=== PATIENT | female | born 1935 | race Caucasian/White ===

== ENCOUNTER → 2016-10-01 | Outpatient (REF) | payer MEDICARE, OTHER ==
[2016-10-01 16:13] LABS: CALCIUM LEVEL 9.5 MG/DL (8.8-10.2)
== END ==
LOC: M LABDRAW1 15:40
PROVIDERS: ATTEND Internal Medicine Endocrinology, Diabetes & Metabolism
DX: M81.0 Age-related osteoporosis without current pathological fracture (principal); E55.9 Vitamin D deficiency, unspecified

== ENCOUNTER → 2016-12-18 | Outpatient (REF) | payer MEDICARE, OTHER ==
[2016-12-18 14:01] LABS: BASO % 0.6 % (0.0-1.0); EOS # 0.2 K/mm3 (0.0-0.50); EOS % 3.1 % (0.0-3.0); LARGE UNSTAINED CELL # 0.1 K/mm3 (0.0-0.4); LARGE UNSTAINED CELL % 2.6 % (0.0-4.0); LYMPH # 1.4 K/mm3 (1.5-4.5); LYMPH % 28.5 % (24.0-44.0); MEAN CORPUSCULAR HEMOGLOBIN 31.4 pg (27.0-33.0); MEAN CORPUSCULAR HGB CONC 34.6 g/dl (32.0-36.5); MEAN CORPUSCULAR VOLUME 90.8 fl (80.0-96.0); MONO # 0.3 K/mm3 (0.0-0.8); MONO % 6.7 % (0.0-5.0); NEUTROPHILS # 2.8 K/mm3 (1.8-7.7); NEUTROPHILS % 58.5 % (36.0-66.0); PLATELET COUNT, AUTOMATED 220 k/mm3 (150-450); RED CELL DISTRIBUTION WIDTH 13.1 % (11.5-14.5); WHITE BLOOD COUNT 4.9 K/mm3 (4.0-10.0)
[2016-12-18 14:05] LABS: ALBUMIN 3.9 GM/DL (3.2-5.2); ALBUMIN/GLOBULIN RATIO 1.39 (1.00-1.93); ALKALINE PHOSPHATASE 72 U/L (45-117); ALT/SGPT 18 U/L (12-78); ANION GAP 7 MEQ/L (8-16); AST/SGOT 12 U/L (15-37); BILIRUBIN,TOTAL 0.6 MG/DL (0.2-1.0); BLOOD UREA NITROGEN 17 MG/DL (7-18); CALCIUM LEVEL 10.2 MG/DL (8.8-10.2); CARBON DIOXIDE LEVEL 29 MEQ/L (21-32); CHLORIDE LEVEL 105 MEQ/L (98-107); CHOLESTEROL LEVEL 266 MG/DL (<200); CREATININE FOR GFR 0.91 MG/DL (0.55-1.02); GLOMERULAR FILTRATION RATE > 60.0 (>39); GLUCOSE, FASTING 93 MG/DL (83-110); POTASSIUM SERUM 4.1 MEQ/L (3.5-5.1); SODIUM LEVEL 141 MEQ/L (136-145); TOTAL PROTEIN 6.7 GM/DL (6.4-8.2); TRIGLYCERIDES LEVEL 107 MG/DL (<150)
== END ==
LOC: M LABDRAW1 13:39
PROVIDERS: ATTEND Family Medicine
DX: M81.0 Age-related osteoporosis without current pathological fracture (principal); I10 Essential (primary) hypertension

== ENCOUNTER → 2017-04-09 | Outpatient (REF) | payer MEDICARE, OTHER | LOC: M LABDRAW1 14:46 | PROVIDERS: ATTEND Internal Medicine Endocrinology, Diabetes & Metabolism | DX: M81.0 Age-related osteoporosis without current pathological fracture (principal); Z78.0 Asymptomatic menopausal state ==

== ENCOUNTER → 2017-04-23 | Outpatient (CLI) | payer MEDICARE, OTHER | LOC: M LABDRAW1 11:16 | PROVIDERS: ATTEND Internal Medicine Endocrinology, Diabetes & Metabolism | DX: E83.52 Hypercalcemia (principal) ==

== ENCOUNTER → 2017-04-23 | Outpatient (CLI) | payer MEDICARE, OTHER ==
[2017-04-23 16:15] LABS: ALBUMIN 4.2 GM/DL (3.2-5.2); ALBUMIN/GLOBULIN RATIO 1.62 (1.00-1.93); ALKALINE PHOSPHATASE 85 U/L (45-117); ALT/SGPT 24 U/L (12-78); ANION GAP 6 MEQ/L (8-16); AST/SGOT 15 U/L (7-37); BILIRUBIN,TOTAL 0.5 MG/DL (0.2-1.0); BLOOD UREA NITROGEN 13 MG/DL (7-18); CALCIUM LEVEL 9.3 MG/DL (8.8-10.2); CARBON DIOXIDE LEVEL 29 MEQ/L (21-32); CHLORIDE LEVEL 106 MEQ/L (98-107); CHOLESTEROL LEVEL 212 MG/DL (<200); CREATININE FOR GFR 0.77 MG/DL (0.55-1.02); GLOMERULAR FILTRATION RATE > 60.0 (>39); GLUCOSE, FASTING 92 MG/DL (83-110); POTASSIUM SERUM 3.9 MEQ/L (3.5-5.1); SODIUM LEVEL 141 MEQ/L (136-145); TOTAL PROTEIN 6.8 GM/DL (6.4-8.2); TRIGLYCERIDES LEVEL 118 MG/DL (<150)
== END ==
LOC: M LABDRAW1 11:18
PROVIDERS: ATTEND Family Medicine
DX: E78.5 Hyperlipidemia, unspecified (principal); E83.52 Hypercalcemia

== ENCOUNTER → 2017-10-06 | Outpatient (REF) | payer MEDICARE, OTHER ==
[2017-10-06 12:50] LABS: ANION GAP 6 MEQ/L (8-16); BLOOD UREA NITROGEN 16 MG/DL (7-18); CALCIUM LEVEL 9.5 MG/DL (8.8-10.2); CARBON DIOXIDE LEVEL 28 MEQ/L (21-32); CHLORIDE LEVEL 109 MEQ/L (98-107); CREATININE FOR GFR 0.96 MG/DL (0.55-1.30); GLOMERULAR FILTRATION RATE 59.7 (>39); GLUCOSE, FASTING 99 MG/DL (70-100); SODIUM LEVEL 143 MEQ/L (136-145)
== END ==
LOC: M LABDRAW1 09:29
DX: E83.52 Hypercalcemia (principal)
CPT/HCPCS: 80048

== ENCOUNTER → 2017-12-05 | Outpatient (REF) | payer MEDICARE, OTHER ==
[2017-12-05 12:40] LABS: CALCIUM LEVEL 9.4 MG/DL (8.8-10.2)
[2017-12-05 14:38] LABS: TOTAL 25(OH) VITAMIN D 80.4 NG/ML (30.0-100.0)
== END ==
LOC: M LABDRAW1 10:18
DX: M81.0 Age-related osteoporosis without current pathological fracture (principal); E55.9 Vitamin D deficiency, unspecified; E78.5 Hyperlipidemia, unspecified
CPT/HCPCS: 82310

== ENCOUNTER → 2017-12-05 | Outpatient (REF) | payer MEDICARE, OTHER ==
[2017-12-05 12:46] LABS: CHOLESTEROL LEVEL 180 MG/DL (<200); CHOLESTEROL RISK RATIO 2.465 (<5); HDL CHOLESTEROL 73 MG/DL (>40); LDL CHOLESTEROL 89.8 MG/DL (<100); NON-HDL-C 107 MG/DL; TRIGLYCERIDES LEVEL 86 MG/DL (<150)
== END ==
LOC: M LABDRAW1 10:11
DX: E78.5 Hyperlipidemia, unspecified (principal)
CPT/HCPCS: 80061

== ENCOUNTER → 2018-04-13 | Outpatient (REF) | payer MEDICARE, OTHER ==
[2018-04-13 18:56] LABS: CALCIUM LEVEL 10.1 MG/DL (8.8-10.2)
[2018-04-13 19:11] LABS: TOTAL 25(OH) VITAMIN D 78.2 NG/ML (30.0-100.0)
== END ==
LOC: M LABDRAW1 17:33
DX: M81.0 Age-related osteoporosis without current pathological fracture (principal); E55.9 Vitamin D deficiency, unspecified
CPT/HCPCS: 82310

== ENCOUNTER → 2018-10-19 | Outpatient (REF) | payer MEDICARE, OTHER ==
[~2018-10-19] MED LIST: AMLO5TAB6 PO; ASPI81TA85 PO; ATOR1TAB19 PO; CALC1TAB42 PO; COLA100C5 PO; LOPR1TAB6 PO; LUTE1CAP7 PO; MIRA3350 PO; VIT D3 PO
== END ==
LOC: M LABDRAW1 11:45
PROVIDERS: ATTEND Internal Medicine Endocrinology, Diabetes & Metabolism
DX: M81.0 Age-related osteoporosis without current pathological fracture (principal)

== ENCOUNTER → 2019-04-19 | Outpatient (REF) | payer MEDICARE, OTHER | LOC: M LABDRAW1 17:09 | PROVIDERS: ATTEND Internal Medicine Endocrinology, Diabetes & Metabolism | DX: M81.0 Age-related osteoporosis without current pathological fracture (principal); E55.9 Vitamin D deficiency, unspecified ==

== ENCOUNTER → 2019-04-27 | Outpatient (CLI) | payer MEDICARE, OTHER ==
[2019-04-27 16:20] LABS: CALCIUM LEVEL 9.7 MG/DL (8.8-10.2); PHOSPHORUS LEVEL 3.4 MG/DL (2.5-4.9); TOTAL PROTEIN 6.8 GM/DL (6.4-8.2)
[2019-04-27 16:39] LABS: PTH INTACT 71.6 PG/ML (18.5-88.0)
[2019-04-28 12:39] LABS: ALBUMIN % 64.5 % (55.8-66.1); ALPHA-2-GLOBULINS % 10.9 % (7.1-11.8); BETA-1-GLOBULINS % 5.8 % (4.7-7.2); GAMMA GLOBULIN % 9.8 % (11.1-18.8)
[2019-04-28 12:40] LABS: ALBUMIN 4.39 GM/DL (3.29-5.55); ALPHA-1-GLOBULINS 0.27 GM/DL (0.17-0.41); ALPHA-2-GLOBULINS 0.74 GM/DL (0.42-0.99); BETA-1-GLOBULINS 0.39 GM/DL (0.28-0.60); BETA-2-GLOBULINS 0.34 GM/DL (0.19-0.55); GAMMA GLOBULINS 0.67 GM/DL (0.65-1.58)
== END ==
LOC: M LAB 15:13
PROVIDERS: ATTEND Internal Medicine Endocrinology, Diabetes & Metabolism
DX: E83.52 Hypercalcemia (principal)

== ENCOUNTER → 2019-05-19 | Outpatient (REF) | payer MEDICARE, OTHER ==
[2019-05-19 11:36] LABS: HEMATOCRIT 46.6 % (36.0-47.0); HEMOGLOBIN 15.3 g/dl (12.0-15.5); MEAN CORPUSCULAR HEMOGLOBIN 30.3 pg (27.0-33.0); MEAN CORPUSCULAR HGB CONC 32.8 g/dl (32.0-36.5); MEAN CORPUSCULAR VOLUME 92.3 fl (80.0-96.0); PLATELET COUNT, AUTOMATED 216 10^3/uL (150-450); RED BLOOD COUNT 5.05 10^6/uL (4.00-5.40); WHITE BLOOD COUNT 6.4 10^3/uL (4.0-10.0)
[2019-05-19 11:41] LABS: ALBUMIN 3.9 GM/DL (3.2-5.2); BILIRUBIN,TOTAL 0.6 MG/DL (0.2-1.0); CALCIUM LEVEL 9.8 MG/DL (8.8-10.2); CHOLESTEROL RISK RATIO 2.722 (<5); CREATININE FOR GFR 0.96 MG/DL (0.55-1.30); GLOMERULAR FILTRATION RATE 59.4 (>32)
== END ==
LOC: M LABDRAW1 09:29
PROVIDERS: ATTEND Family Medicine
DX: I10 Essential (primary) hypertension (principal)

== ENCOUNTER → 2019-10-14 | Outpatient (CLI) | payer MEDICARE, OTHER ==
[2019-10-14 13:25] LABS: CALCIUM LEVEL 10.1 MG/DL (8.8-10.2)
[2019-10-14 13:33] LABS: TOTAL 25(OH) VITAMIN D 74.1 NG/ML (30.0-100.0)
== END ==
LOC: M PLALAB 11:09
PROVIDERS: ATTEND Internal Medicine Endocrinology, Diabetes & Metabolism
DX: M81.0 Age-related osteoporosis without current pathological fracture (principal)

== ENCOUNTER → 2019-11-19 | Outpatient (CLI) | payer MEDICARE, OTHER ==
[~2019-11-19] MED LIST changes: +AMLO1TAB24 PO; -AMLO5TAB6 PO; -ASPI81TA85 PO; +ASPI81TA86 PO
[2019-11-19 11:15] LABS: HEMATOCRIT 45.4 % (36.0-47.0); HEMOGLOBIN 14.9 g/dl (12.0-15.5); MEAN CORPUSCULAR HEMOGLOBIN 29.9 pg (27.0-33.0); MEAN CORPUSCULAR HGB CONC 32.8 g/dl (32.0-36.5); PLATELET COUNT, AUTOMATED 201 10^3/uL (150-450); RED BLOOD COUNT 4.99 10^6/uL (4.00-5.40); WHITE BLOOD COUNT 5.2 10^3/uL (4.0-10.0)
[2019-11-19 11:21] LABS: C REACTIVE PROTEIN QUANTITATIV < 0.30 MG/DL (0.00-0.30); RHEUMATOID FACTOR QUANT < 10.0 IU/ML (<15.0)
[2019-11-19 11:29] LABS: ALT/SGPT 25 U/L (12-78); BILIRUBIN,TOTAL 0.7 MG/DL (0.2-1.0); BLOOD UREA NITROGEN 16 MG/DL (7-18); CALCIUM LEVEL 9.8 MG/DL (8.8-10.2); CARBON DIOXIDE LEVEL 31 MEQ/L (21-32); CHLORIDE LEVEL 106 MEQ/L (98-107); CHOLESTEROL LEVEL 214 MG/DL (<200); CHOLESTEROL RISK RATIO 2.931 (<5); CREATININE FOR GFR 0.92 MG/DL (0.55-1.30); GLOMERULAR FILTRATION RATE > 60.0 (>32); GLUCOSE, FASTING 94 MG/DL (70-100); HDL CHOLESTEROL 73 MG/DL (>40); LDL CHOLESTEROL 122 MG/DL (<100); NON-HDL-C 141 MG/DL; POTASSIUM SERUM 4.5 MEQ/L (3.5-5.1); SODIUM LEVEL 140 MEQ/L (136-145); TRIGLYCERIDES LEVEL 96 MG/DL (<150)
[2019-11-19 18:00] LABS: TOTAL 25(OH) VITAMIN D 79.4 NG/ML (30.0-100.0)
[2019-11-20 14:08] LABS: ANTINUCLEAR ANTIBODIES DIRECT Negative (Negative)
== END ==
LOC: M PLALAB 09:18
PROVIDERS: ATTEND Internal Medicine Endocrinology, Diabetes & Metabolism
DX: M05.60 Rheumatoid arthritis of unspecified site with involvement of other organs and systems (principal); E78.00 Pure hypercholesterolemia, unspecified

== ENCOUNTER → 2020-05-01 | Outpatient (CLI) | payer MEDICARE, OTHER ==
[2020-05-01 14:39] LABS: CALCIUM LEVEL 10.9 MG/DL (8.8-10.2)
[2020-05-01 14:49] LABS: PTH INTACT 34.2 PG/ML (18.5-88.0); TOTAL 25(OH) VITAMIN D 64.9 NG/ML (30.0-100.0)
== END ==
LOC: M PLALAB 09:14
PROVIDERS: ATTEND Internal Medicine Endocrinology, Diabetes & Metabolism
DX: M81.0 Age-related osteoporosis without current pathological fracture (principal)

== ENCOUNTER → 2020-05-11 | Outpatient (CLI) | payer MEDICARE, OTHER ==
[2020-05-11 13:45] LABS: BASO % 0.3 % (0.0-1.0); EOS # 0.2 10^3/uL (0.0-0.5); EOS % 2.7 % (0.0-3.0); HEMATOCRIT 47.2 % (36.0-47.0); HEMOGLOBIN 15.1 g/dl (12.0-15.5); LYMPH # 1.2 10^3/uL (1.5-5.0); LYMPH % 16.4 % (24.0-44.0); MEAN CORPUSCULAR VOLUME 93.8 fl (80.0-96.0); MONO # 0.7 10^3/uL (0.0-0.8); MONO % 9.7 % (0.0-5.0); NEUTROPHILS # 5.1 10^3/uL (1.5-8.5); NEUTROPHILS % 70.2 % (36.0-66.0); PLATELET COUNT, AUTOMATED 224 10^3/uL (150-450); RED BLOOD COUNT 5.03 10^6/uL (4.00-5.40); WHITE BLOOD COUNT 7.3 10^3/uL (4.0-10.0)
[2020-05-11 14:12] LABS: ALBUMIN 3.7 GM/DL (3.2-5.2); BILIRUBIN,TOTAL 0.6 MG/DL (0.2-1.0); CALCIUM LEVEL 9.7 MG/DL (8.8-10.2); CREATININE FOR GFR 1.09 MG/DL (0.55-1.30); GLOMERULAR FILTRATION RATE 51.2 (>32); POTASSIUM SERUM 3.9 MEQ/L (3.5-5.1); TOTAL PROTEIN 6.4 GM/DL (6.4-8.2)
== END ==
LOC: M PLALAB 10:00
PROVIDERS: ATTEND Family Medicine
DX: R19.7 Diarrhea, unspecified (principal)

== ENCOUNTER → 2020-06-05 | Outpatient (CLI) | payer SELFPAY | LOC: M LABSMTC 12:27 | PROVIDERS: ATTEND Pediatrics | DX: Z20.828 Contact with and (suspected) exposure to other viral communicable diseases (principal) ==

== ENCOUNTER → 2020-09-15 | Outpatient (CLI) | payer MEDICARE, OTHER ==
[2020-09-15 13:12] LABS: HEMATOCRIT 47.4 % (36.0-47.0); HEMOGLOBIN 15.2 g/dl (12.0-15.5); MEAN CORPUSCULAR HEMOGLOBIN 29.6 pg (27.0-33.0); MEAN CORPUSCULAR HGB CONC 32.1 g/dl (32.0-36.5); MEAN CORPUSCULAR VOLUME 92.4 fl (80.0-96.0); PLATELET COUNT, AUTOMATED 229 10^3/uL (150-450); RED BLOOD COUNT 5.13 10^6/uL (4.00-5.40); WHITE BLOOD COUNT 5.7 10^3/uL (4.0-10.0)
[2020-09-15 13:59] LABS: ALBUMIN 4.2 GM/DL (3.2-5.2); ALT/SGPT 27 U/L (12-78); BILIRUBIN,TOTAL 0.4 MG/DL (0.2-1.0); BLOOD UREA NITROGEN 18 MG/DL (7-18); CALCIUM LEVEL 10.3 MG/DL (8.8-10.2); CARBON DIOXIDE LEVEL 30 MEQ/L (21-32); CHLORIDE LEVEL 104 MEQ/L (98-107); CREATININE FOR GFR 0.81 MG/DL (0.55-1.30); GLOMERULAR FILTRATION RATE > 60.0 (>32); GLUCOSE, FASTING 99 MG/DL (70-100); POTASSIUM SERUM 3.7 MEQ/L (3.5-5.1); SODIUM LEVEL 141 MEQ/L (136-145); TOTAL PROTEIN 7.1 GM/DL (6.4-8.2)
== END ==
LOC: M PLALAB 11:05
PROVIDERS: ATTEND Family Medicine
DX: R42 Dizziness and giddiness (principal)

== ENCOUNTER → 2020-11-01 | Outpatient (REF) | payer MEDICARE, OTHER ==
[2020-11-01 14:41] LABS: PTH INTACT 62.5 PG/ML (18.5-88.0)
== END ==
LOC: M PLALAB 13:11
PROVIDERS: ATTEND Internal Medicine Endocrinology, Diabetes & Metabolism
DX: E83.52 Hypercalcemia (principal); M81.0 Age-related osteoporosis without current pathological fracture

== ENCOUNTER → 2021-02-02 | Outpatient (CLI) | payer MEDICARE, OTHER ==
[~2021-02-02] MED LIST changes: +ASPI81CH33 PO
[2021-02-02 13:32] LABS: HEMATOCRIT 47.5 % (36.0-47.0); HEMOGLOBIN 15.7 g/dl (12.0-15.5); MEAN CORPUSCULAR HEMOGLOBIN 29.9 pg (27.0-33.0); MEAN CORPUSCULAR HGB CONC 33.1 g/dl (32.0-36.5); MEAN CORPUSCULAR VOLUME 90.5 fl (80.0-96.0); PLATELET COUNT, AUTOMATED 221 10^3/uL (150-450); RED BLOOD COUNT 5.25 10^6/uL (4.00-5.40); WHITE BLOOD COUNT 5.6 10^3/uL (4.0-10.0)
[2021-02-02 13:56] LABS: ALBUMIN 4.1 GM/DL (3.2-5.2); ALT/SGPT 23 U/L (12-78); BILIRUBIN,TOTAL 0.7 MG/DL (0.2-1.0); BLOOD UREA NITROGEN 14 MG/DL (7-18); CALCIUM LEVEL 10.4 MG/DL (8.8-10.2); CARBON DIOXIDE LEVEL 32 MEQ/L (21-32); CHLORIDE LEVEL 106 MEQ/L (98-107); CHOLESTEROL LEVEL 243 MG/DL (<200); CHOLESTEROL RISK RATIO 2.858 (<5); CREATININE FOR GFR 0.84 MG/DL (0.55-1.30); GLOMERULAR FILTRATION RATE > 60.0 (>32); GLUCOSE, FASTING 90 MG/DL (70-100); HDL CHOLESTEROL 85 MG/DL (>40); LDL CHOLESTEROL 139 MG/DL (<100); NON-HDL-C 158 MG/DL; POTASSIUM SERUM 4.6 MEQ/L (3.5-5.1); SODIUM LEVEL 141 MEQ/L (136-145); TOTAL PROTEIN 7.2 GM/DL (6.4-8.2); TRIGLYCERIDES LEVEL 97 MG/DL (<150)
[2021-02-02 14:47] LABS: TOTAL 25(OH) VITAMIN D 82.4 NG/ML (30.0-100.0)
== END ==
LOC: M PLALAB 09:42
PROVIDERS: ATTEND Family Medicine
DX: M81.0 Age-related osteoporosis without current pathological fracture (principal); E78.00 Pure hypercholesterolemia, unspecified

== ENCOUNTER 2021-05-03 10:14 | Emergency (ER) | payer MEDICARE, OTHER ==
[~2021-05-03] VITALS: Ht 160 cm; Wt 56.8 kg
[2021-05-03] MEDS ORDERED: MUCI1TAB18 (10:26)
[2021-05-03] MEDS ORDERED: AMOX875T (10:26)
[2021-05-03] MEDS ORDERED: IPRA6SP (10:26)
--- OUTSIDE RECORDS SUMMARY | 2021-05-03 10:27 | CCD | Continuity of Care Document ---
Author Author Lilian BUCKLEY MD Organization Unknown Address [address] [address] Phone [phone] Care Team Providers Care Health Information Systems Technician Name Role Phone Mike Vega M.D. AUTM [phone] AUTM Unavailable Problems Description No Information Available Social History Type Date Description Comments Sex Unknown ETOH Use 1 A Week Tobacco Use Start: Unknown End: Unknown Patient is a former smoker Recreational Drug Use Denies Drug Use Allergies and adverse reactions Description No Known Drug Allergies Medications Active Medications SIG Qnty Indications Ordering Provide r Date Sinus Rinse Bottle Kit Packet use once daily 3Months Usman Buckley MD 02/14/2021 Polysporin [id number] Ointme nt apply ointment to each nostril three times a day for 10 days 14.200gm Usman Buckley MD 02/14/2021 Amlodipine Besylate 5mg Tablets Unknown Atorvastatin Calcium 10mg Tablets Unknown Prolia 60mg/ml Soln Prefill Syring e [id number] Unknown Vitamin D3 25mcg (1000 Ut) Capsules Unknown Calcium 600 600mg Tablets Unknown Stool Softener 100mg Tablets Unknown Aspirin 81 Low Dose 81mg Chewtabs 1 by mouth every day Unknown Metoprolol Tartrate 50mg Tablets Unknown Gabapentin 100mg Capsules Mami Dixon, P.A. Zolpidem Tartrate 5mg Tablets Mike Vega M.D. Immunizations Description No Information Available Vital Signs Date Vital Result Comment 03/20/2021 9:51am Height 63.5 inches 5'3.50" Weight 125.00 lb BMI (Body Mass Index) 21.8 kg/m2 [place] Body Weight 115 lb Weight 56.700 kg BSA (Body Surface Area) 1.59 m2 02/14/2021 10:05am Weight 122.00 lb Weight 55.339 kg Results Description No Information Available Procedures Date Code Description Status 02/14/2021 68494 Office/Outpatient New Moderate M DM 45-59 Minutes Completed Medical Devices Description No Information Available Encounters Type Date Location Provider Dx Diagnosis Office Visit 02/14/2021 10:10a [facility] Usman Buckley MD J31.0 Chronic rhinitis Assessments Date Code Description Provider 02/14/2021 J31.0 Chronic rhinitis Usman Buckley MD Plan of Treatment No Information Available Functional Status Description No Information Available Mental Status Description No Information Available Referrals Refer to Reason for Referral Status Appt Usman Buckley M.D. [facility] Closed [address] [place] [address] [phone]
--- OUTSIDE RECORDS SUMMARY | 2021-05-03 10:27 | CCD | Continuity of Care Document ---
Author Author Lilian FRANCO [facility] Organization Unknown Address [address] [place] [address] [place] [address] Phone [phone] Care Team Providers Care Vice President Of Advertising Name Role Phone Mike Vega MD AUTM [phone] Problems Description No Information Available Social History Type Date Description Comments Sex Unknown ETOH Use Occasionally consumes wine Tobacco Use Start: Unknown End: Unknown Patient is a former smoker 1991 Allergies and adverse reactions Description No Known Drug Allergies Medications Active Medications SIG Qnty Indications Ordering Provide r Date Amoxicillin 875mg Tablets take one tablet every 12 hrs.x 10 days. 20tabs J20.9 David Chicas JR., M.D. 04/24/2021 Prednisone 10mg Tablets take one tab in the morning and at night for 5 days 10tabs J20.9 David leonard JR., M.D. 04/24/2021 Amlodipine Besylate 5mg Tablets 1 by mouth every day Unknown Prolia 60mg/ml Solution ve ry 6 months- Unknown Vitamin D3 5000Unit Tablets d aily Unknown Caltrate 600+D [id number] Tablets ad Unknown Lutein-Zeaxanthin 25-5mg Capsules daily Unknown Stool Softener 250mg Capsules bid Unknown Miralax 3350NF Packet use one packet daily as prescribed Unknown Claritin Unknown Mucinex Unknown Immunizations Description No Information Available Vital Signs Date Vital Result Comment 04/24/2021 11:48am BP Systolic 136 mmHg BP Diastolic 92 mmHg Heart Rate 98 /min Respiratory Rate 20 /min O2 % BldC Oximetry 99 % Body Temperature 99.6 F Weight 125.00 lb Height 63 inches 5'3" BMI (Body Mass Index) 22.1 kg/m2 Pain Level 8 09/01/2016 2:45pm BP Systolic 119 mmHg BP Diastolic 71 mmHg Heart Rate 81 /min Respiratory Rate 18 /min O2 % BldC Oximetry 92 % Body Temperature 99.2 F Weight 130.00 lb Height 63 inches 5'3" BMI (Body Mass Index) 23.0 kg/m2 Pain Level 8 Results Description No Information Available Procedures Date Code Description Status 04/24/2021 65089 Office/Outpatient New Low MDM 30 -44 Minutes Completed Medical Devices Description No Information Available Encounters Type Date Location Provider Dx Diagnosis Office Visit 04/24/2021 10:00a Main Office HEAVEN Phelps J06 .9 Acute upper respiratory infection, unspecified J20.9 Acute bronchitis, unspecifie d Z20.828 Contact w and exposure to ot h viral communicable diseases Assessments Date Code Description Provider 04/24/2021 J06.9 Acute upper respiratory infectio n, unspecified HEAVEN Phelps 04/24/2021 J20.9 Acute bronchitis, unspecified [place] HEAVEN Ball 04/24/2021 Z20.828 Contact with and (fried spected) exposure to other viral communicable diseases HEAVEN Phelps Plan of Treatment No Information Available Functional Status Description No Information Available Mental Status Description No Information Available Referrals Description No Information Available
--- OUTSIDE RECORDS SUMMARY | 2021-05-03 10:27 | CCD | Continuity of Care Document ---
Author Author Lilian FRANCO [facility] Organization Unknown Address [address] [place] [address] [place] [address] Phone [phone] Care Team Providers Care Remote Control Mirror Installer Name Role Phone Mike Vega MD AUTM [phone] Problems Description No Information Available Social History [...] 5000Unit Tablets d aily Unknown Caltrate 600+D [id number] Tablets ad Unknown Lutein-Zeaxanthin 25-5mg Capsules daily [...] Available Procedures Date Code Description Status 04/24/2021 60218 Office/Outpatient New Low MDM 30 -44 Minutes [...]
--- OUTSIDE RECORDS SUMMARY | 2021-05-03 10:27 | CCD | Continuity of Care Document ---
Author Author Lilian BUCKLEY MD Organization Unknown Address [address] [address] Phone [phone] Care Team Providers Care Sliver Lap Tender Name Role Phone Mike Vega M.D. AUTM [phone] AUTM Unavailable Problems Description No Information Available Social History Type Date Description Comments Sex Unknown ETOH Use 1 A Week Tobacco Use Start: Unknown End: Unknown Patient is a former smoker Recreational Drug Use Denies Drug Use Allergies and adverse reactions Description No Known Drug Allergies Medications Active Medications SIG Qnty Indications Ordering Provide r Date Ipratropium [place] 0.06% Solution spray 2 sprays in each nostrils two times a day 15units Usman keys MD 04/30/2021 Sinus Rinse Bottle Kit Packet use once daily 3Months Usman Buckley MD 02/14/2021 Polysporin [id number]/GM Ointme nt apply ointment to each nostril three times a day for 10 days 14.200gm Usman Buckley MD 02/14/2021 Amlodipine Besylate 5mg Tablets Unknown Atorvastatin Calcium 10mg Tablets Unknown Prolia 60mg/ml Soln Prefill Syring e [id number] Unknown Vitamin D3 25mcg (1000 Ut) Capsules Unknown Calcium 600 600mg Tablets Unknown Stool Softener 100mg Tablets Unknown Aspirin 81 Low Dose 81mg Chewtabs 1 by mouth every day Unknown Metoprolol Tartrate 50mg Tablets Unknown Gabapentin 100mg Capsules Mami Dixon, P.A. Zolpidem Tartrate 5mg Tablets Mike Vega M.D. Amoxicillin 875mg Tablets Take 1 Tablet By Every 12 Hours For 10 Days Unknown Immunizations Description No Information Available Vital Signs Date Vital Result Comment 04/30/2021 12:54pm Height 63.5 inches 5'3.50" Weight 125.00 lb BMI (Body Mass Index) 21.8 kg/m2 [place] Body Weight 115 lb Weight 56.700 kg BSA (Body Surface Area) 1.59 m2 03/20/2021 9:51am Height 63.5 inches 5'3.50" Weight 125.00 lb BMI (Body Mass Index) 21.8 kg/m2 [place] Body Weight 115 lb Weight 56.700 kg BSA (Body Surface Area) 1.59 m2 Results Description No Information Available Procedures Date Code Description Status 03/20/2021 64299 Office/Outpatient Established Mo d MDM 30-39 Min Completed 02/14/2021 08186 Office/Outpatient New Moderate M DM 45-59 Minutes Completed Medical Devices Description No Information Available Encounters Type Date Location Provider Dx Diagnosis Office Visit 03/20/2021 9:50a [facility] Usman Buckley MD J31.0 Chronic rhinitis J34.89 Other specified disorders of nose and nasal sinuses Office Visit 02/14/2021 10:10a [facility] Usman Buckley MD J31.0 Chronic rhinitis Assessments Date Code Description Provider 03/20/2021 J31.0 Chronic rhinitis Usman Buckley MD 03/20/2021 J34.89 Other specified disorders of nos e and nasal sinuses Usman Buckley MD 02/14/2021 J31.0 Chronic rhinitis Usman Buckley MD Plan of Treatment Future Appointment(s):* 05/08/2021 1:30 pm - Usman Buckley MD at [facility] Functional Status Description No Information Available Mental Status Description No Information Available Referrals Refer to Reason for Referral Status Appt Usman Corey M.D. [facility] Closed [address] [place] [address] [phone]
--- OUTSIDE RECORDS SUMMARY | 2021-05-03 10:27 | CCD | Continuity of Care Document ---
Author Author Lilian BUCKLEY MD Organization Unknown Address [address] [address] Phone [phone] Care Team Providers Care Revenue Stamp Cutter Name Role Phone Mike Vega M.D. AUTM [phone] AUTM Unavailable Problems Description No Information Available [...] daily 3Months Usman Buckley MD 02/14/2021 Polysporin [id number]/GM Ointme nt apply ointment to each nostril three times a day for 10 days 14.200gm Usman Buckley MD 02/14/2021 Amlodipine Besylate 5mg Tablets Unknown Atorvastatin Calcium 10mg Tablets Unknown Prolia 60mg/ml Soln Prefill Syring e [id number] Unknown Vitamin D3 25mcg (1000 Ut) Capsules [...] lb BMI (Body Mass Index) 21.8 kg/m2 [place] Body Weight 115 lb Weight 56.700 kg BSA (Body Surface Area) 1.59 m2 02/14/2021 10:05am Weight 122.00 lb Weight 55.339 kg Results Description No Information Available Procedures Date Code Description Status 03/20/2021 22384 Office/Outpatient Established Mo d MDM 30-39 Min Completed 02/14/2021 20041 Office/Outpatient New Moderate M DM 45-59 Minutes Completed Medical Devices Description No Information Available Encounters Type Date Location Provider Dx Diagnosis Office Visit 03/20/2021 9:50a [facility] Usman Buckley MD J31.0 Chronic rhinitis J34.89 Other specified disorders of nose and nasal sinuses Office Visit 02/14/2021 10:10a [facility] Usman Buckley MD J31.0 Chronic rhinitis Assessments Date Code Description Provider 03/20/2021 J31.0 Chronic rhinitis Usman Buckley MD 03/20/2021 J34.89 Other specified disorders of nos e and nasal sinuses Usman Buckley MD 02/14/2021 J31.0 Chronic rhinitis Usman Buckley MD Plan of Treatment Future Appointment(s):* 04/30/2021 1:10 pm - Usman Buckley MD at [facility] 03/20/2021 - Usman Buckley MD* J31.0 Chronic rhinitis * J34.89 Other specified disorders of nose and nasal sinuses Functional Status Description No Information Available Mental Status Description No Information Available Referrals Refer to Reason for Referral Status Appt Usman Corey M.D. [facility]IDD[facility] Closed 2020 [address] [place] [address] [phone]
--- OUTSIDE RECORDS SUMMARY | 2021-05-03 10:27 | CCD ---
Author Author Km Tellez MD [facility] Organization Km Tellez MD [facility] Address [address] [address] Phone Care Team Providers Care Customer Sales Consultant Name Role Phone Rosalinda HERNANDEZ, Km HUMPHRIES Unavailable [phone] Nisreen HERNANDEZ, Cordell PP [phone] Reason for Referral No Reason for Referral Recorded Problems Includes: Active, inactive, and resolved Problems All Visits Onset Date - Time Resolved Date - Time Provider Co ndition Status Dry Eye Syndrome 01/29/2018 - 12:00AM Km lopez MD, FACS Inactive Macular Degeneration Nonexudative Bilateral Early Dry Stage 09/20/2016 - 12:00AM Km Tellez MD, FACS Active Essential Hypertension 07/26/2015 - 12:00AM Km Chen MD, FACS Active Cataract Senile Cortical 05/09/2015 - 12:00AM Km Tellez MD, FACS Active Note: Unchanged - of both ey es History of Nicotine Dependence 05/09/2015 - 12:00AM Km Tellez MD, FACS Active Note: Unchanged Vitreous Disorders Degeneration 05/09/2015 - 12:00AM Km Tellez MD, FACS Active Note: Unchanged Conjunctivitis Chronic Allergic 12/08/2013 - 12:00AM Km Tellez MD, FACS Active Note: Unchanged Cataract Senile Cortical Anterior 06/10/2013 - 12:00AM Km Tellez MD, FACS Inactive Note: Unchanged - of both ey es Vitreous Floaters Both Eyes 11/09/2012 - 12:00AM Km Tellez MD, FACS Inactive Note: Unchanged Astigmatism 11/06/2012 - 12:00AM Km Tellez MD, FACS Inactive Note: Unchanged - both eyes Dermatochalasis Both Eyelids 11/06/2012 - 12:00AM Km Tellez MD, FACS Inactive Note: Unchanged Macular Degeneration Nonexudative Dry 11/06/2012 - 12:00AM Km Tellez MD, FACS Inactive Note: Unchanged - of both ey es Presbyopia 11/06/2012 - 12:00AM Km Tellez MD, FACS Active Note: Unchanged - both eyes Refractive Error - Hypermetropia 11/06/2012 - 12:00AM Km Tellez MD, FACS Inactive Note: Unchanged - both eyes Cataract Senile Nuclear 11/06/2012 - 12:00AM Km Tellez MD, FACS Active Note: Unchanged - both eyes Dry Eye Syndrome Both Eyes 11/06/2012 - 12:00AM Km Tellez MD, FACS Active Note: Unchanged Plan of Treatment Pending Tests Order Diagnosis Results Due Ordering Provi art Testing Ordered - OCT OCT RETINA Nexdtve age-relate d mclr degn, bilateral, early dry stage 12/31/20 Km Tellez MD, FACS Future Appointments Date Time Location Provider 6 Month Follow-Up 07/18/2021 9:05AM [facility] Km Tellez MD, FACS Findings Encounter Date Ordered optical coherence tomography An OCT Retina is indicated for macular degeneration to evaluate the several layers of the retina to determine whether or not there are any retinal defects such as edema, holes, or retinal pigment atrophy 8 Month Follow-Up with Km Tellez MD, FACS Assessments Includes: Assessments for all patient encounters Findings Encounter Date Cortical senile cataract 6 Month Follow-Up with Km Holcomb MD, FACS 07/04/2020 Early dry stage nonexudative macular degeneration of b oth eyes 6 Month Follow-Up with Km Tellez MD, FACS 07/04/2020 Essential hypertension 6 Month Follow-Up with Km Michel MD, FACS 07/04/2020 History of nicotine dependence 6 Month Follow-Up with Km Tellez MD, FACS 07/04/2020 Nuclear senile cataract 6 Month Follow-Up with Km Graves MD, FACS 07/04/2020 Cortical senile cataract 7 Month Follow-Up and Deya mckeon with Km Tellez MD, FACS 12/20/2019 Early dry stage nonexudative macular degeneration of b oth eyes 7 Month Follow-Up and Testing with Km Tellez MD, FACS 12/20/2019 Essential hypertension 7 Month Follow-Up and Testin g with Km Tellez MD, FACS 12/20/2019 History of nicotine dependence 7 Month Follow-Up and T esting with Km Tellez MD, FACS 12/20/2019 Nuclear senile cataract 7 Month Follow-Up and Testin g with Km Tellez MD, FACS 12/20/2019 Cortical senile cataract 8 Month Follow-Up with Km Holcomb MD, FACS 05/13/2019 Dry eye syndrome 8 Month Follow-Up with Km basilio MD, FACS 05/13/2019 Early dry stage nonexudative macular degeneration of b oth eyes 8 Month Follow-Up with Km Tellez MD, FACS 05/13/2019 Essential hypertension 8 Month Follow-Up with Km Michel MD, FACS 05/13/2019 History of nicotine dependence 8 Month Follow-Up with Km Tellez MD, FACS 05/13/2019 Nuclear senile cataract 8 Month Follow-Up with Km Graves MD, FACS 05/13/2019 Cortical senile cataract 8 Month Follow-Up and Testin g with Km Tellez MD, FACS 09/28/2018 Dry eye syndrome of both eyes 8 Month Follow-Up and Te sting with Km Louis MD, FACS 09/28/2018 Early dry stage nonexudative macular degeneration of b oth eyes 8 Month Follow-Up and Testing with Km Tellez MD, FACS 09/28/2018 Essential hypertension 8 Month Follow-Up and Testin g with Km Tellez MD, FACS 09/28/2018 History of nicotine dependence 8 Month Follow-Up and T esting with Km Tellez MD, FACS 09/28/2018 Nuclear senile cataract 8 Month Follow-Up and Testin g with Km Tellez MD, FACS 09/28/2018 Cortical senile cataract 8 Month Follow-Up with Km Holcomb MD, FACS 01/29/2018 Dry eye syndrome 8 Month Follow-Up with Km basilio MD, FACS 01/29/2018 Early dry stage nonexudative macular degeneration of b oth eyes 8 Month Follow-Up with Km Tellez MD, FACS 01/29/2018 History of nicotine dependence 8 Month Follow-Up with Km Tellez MD, FACS 01/29/2018 Nuclear senile cataract 8 Month Follow-Up with Km Graves MD, FACS 01/29/2018 Bilateral cortical senile cataract 7 Month Follow-Up w ith Km Tellez MD, FACS 04/29/2017 Dry eye syndrome of both eyes 7 Month Follow-Up with Lorraine Tellez MD, FACS 04/29/2017 Early dry stage nonexudative macular degeneration of b oth eyes 7 Month Follow-Up with Km Tellez MD, FACS 04/29/2017 Essential (primary) hypertension 7 Month Follow-Up wit h Km Tellez MD, FACS 04/29/2017 History of nicotine dependence 7 Month Follow-Up with Km Tellez MD, FACS 04/29/2017 Nuclear senile cataract 7 Month Follow-Up with Km Graves MD, FACS 04/29/2017 Bilateral cortical senile cataract 9 Month Follow-Up w ith Testing with Km Tellez MD, FACS 09/20/2016 Dry eye syndrome of both eyes 9 Month Follow-Up with T esting with Km Tellez MD, FACS 09/20/2016 Early dry stage nonexudative macular degeneration of b oth eyes 9 Month Follow-Up with Testing with Km Tellez MD, FACS 09/20/2016 Essential (primary) hypertension 9 Month Follow-Up wit h Testing with Km Tellez MD, FACS 09/20/2016 History of nicotine dependence 9 Month Follow-Up with Testing with Km Tellez MD, FACS 09/20/2016 Nuclear senile cataract 9 Month Follow-Up with Lyndsay horvath with Km Tellez MD, FACS 09/20/2016 Cortical senile cataract 8 Month Follow-Up with Km Holcomb MD, FACS 01/04/2016 Dry eye syndrome of both eyes 8 Month Follow-Up with Lorraine Tellez MD, FACS 01/04/2016 Essential hypertension 8 Month Follow-Up with Km Michel MD, FACS 01/04/2016 History of nicotine dependence 8 Month Follow-Up with Km Tellez MD, FACS 01/04/2016 Nonexudative age-related macular degeneration of both eyes 8 Month Follow-Up with Km Tellez MD, FACS 01/04/2016 Nuclear senile cataract 8 Month Follow-Up with Km Graves MD, FACS 01/04/2016 Cortical senile cataract 7 Month Follow-Up with Km Holcomb MD, FACS 05/09/2015 Dry eye syndrome of both eyes 7 Month Follow-Up with Lorraine Tellez MD, FACS 05/09/2015 Essential (primary) hypertension 7 Month Follow-Up wit h Km Tellez MD, FACS 05/09/2015 History of nicotine dependence 7 Month Follow-Up with Km Tellez MD, FACS 05/09/2015 Nonexudative age-related macular degeneration of both eyes 7 Month Follow-Up with Km Tellez MD, FACS 05/09/2015 Nuclear senile cataract 7 Month Follow-Up with Km Graves MD, FACS 05/09/2015 Vitreous degeneration 7 Month Follow-Up with Km Louis MD, FACS 05/09/2015 Anterior cortical senile cataract both eyes 9 Month F ollow-Up with Km Tellez MD, FACS 10/04/2014 Chronic allergic conjunctivitis both eyes 9 Month Fol low-Up with Km Tellez MD, FACS 10/04/2014 Dermatochalasis of both eyes 9 Month Follow-Up with Varghese Tellez MD, FACS 10/04/2014 Dry eye syndrome of both eyes 9 Month Follow-Up with Lorraine Tellez MD, FACS 10/04/2014 Dry nonexudative macular degeneration both eyes 9 Mon th Follow-Up with Km Tellez MD, FACS 10/04/2014 Nuclear senile cataract both eyes 9 Month Follow-Up w jeramie Tellez MD, FACS 10/04/2014 Vitreous floaters in both eyes 9 Month Follow-Up with Km Tellez MD, FACS 10/04/2014 Anterior cortical senile cataract of both eyes 6 Akshat h Follow-Up with Km Tellez MD, FACS 12/08/2013 Chronic allergic conjunctivitis of both eyes 6 Month Follow-Up with Km Tellez MD, FACS 12/08/2013 Dermatochalasis of both eyes 6 Month Follow-Up with Varghese Tellez MD, FACS 12/08/2013 Dry eye syndrome of both eyes 6 Month Follow-Up with Lorraine Tellez MD, FACS 12/08/2013 Dry nonexudative macular degeneration of both eyes 6 Month Follow-Up with Km Tellez MD, FACS 12/08/2013 Nuclear senile cataract of both eyes 6 Month Follow-U p with Km Tellez MD, FACS 12/08/2013 Vitreous floaters in both eyes 6 Month Follow-Up with Km Tellez MD, FACS 12/08/2013 Anterior cortical senile cataract of both eyes 6 Akshat h Follow-Up with Km Tellez MD, FACS 06/10/2013 Dermatochalasis of both eyes 6 Month Follow-Up with Varghese Tellez MD, FACS 06/10/2013 Dry eye syndrome of both eyes 6 Month Follow-Up with Lorraine Tellez MD, FACS 06/10/2013 Dry nonexudative macular degeneration of both eyes 6 Month Follow-Up with Km Tellez MD, FACS 06/10/2013 Nuclear senile cataract of both eyes 6 Month Follow-U p with Km Tellez MD, FACS 06/10/2013 Vitreous floaters in both eyes 6 Month Follow-Up with Km Tellez MD, FACS 06/10/2013 Anterior cortical senile cataract 4 Month Follow-Up wi th Km Tellez MD, FACS 11/06/2012 Astigmatism both eyes 4 Month Follow-Up with Km Michel MD, FACS 11/06/2012 Dermatochalasis of both eyes 4 Month Follow-Up with Varghese Tellez MD, FACS 11/06/2012 Dry eye syndrome of both eyes 4 Month Follow-Up with Lorraine Tellez MD, FACS 11/06/2012 Dry nonexudative macular degeneration Very Mild 4 Mon th Follow-Up with Km Tellez MD, FACS 11/06/2012 Hypermetropia both eyes 4 Month Follow-Up with Km Holcomb MD, FACS 11/06/2012 Nuclear senile cataract both eyes 4 Month Follow-Up w ith Km Tellez MD, FACS 11/06/2012 Presbyopia both eyes 4 Month Follow-Up with Km Louis MD, FACS 11/06/2012 Vitreous floaters in both eyes 4 Month Follow-Up with Km Tellez MD, FACS 11/06/2012 Instructions Instructions not supported for this document typeNo Instructions Recorded Medical Equipment - Implanted Devices Includes: Current and historical DevicesNo Medical Equipment Recorded Medications Includes: Current and historical Medications Current Medications (continue as prescribed) Atorvastatin 10 mg Oral Tablet 01/29/2018 Provider: Diagnosis: everyother day Prolia 60 MG/ML SC SOLN 12/08/2013 Provider: Diagnosis: One injection every 6 months Calcium 600+D3 600-200 MG-UNIT OR TABS 12/08/2013 P rovider: Diagnosis: Systane 0.4-0.3% OP SOLN 12/08/2013 Provider: Diagnosis: Ocuvite OR TABS 12/08/2013 Provider: Diagnosis: amLODIPine Besylate 5 MG OR TABS 12/08/2013 Provide r: Diagnosis: Adult Aspirin EC Low Strength 81 MG OR TBEC 11/06/2012 Provider: Diagnosis: Multivitamins OR CAPS 11/06/2012 Provider: Diagnosis: Metoprolol Tartrate 50 MG OR TABS 11/06/2012 Provid er: Diagnosis: Past Medications on file Lutein 6 MG OR CAPS 12/08/2013 - 12/08/2013 Provider: Diagnosis: Vitamin D 1000 UNIT OR TABS 12/08/2013 - 12/08/2013 Provider : Diagnosis: Dyazide 37.5-25 MG OR CAPS 11/06/2012 - 06/10/2013 Provider: Diagnosis: Every other day Vitamin D (Ergocalciferol) 1.25 MG (86962 UT) OR CAPS 2012 - 12/08/2013 Provider: Diagnosis: once wkly Fosamax 70 MG OR TABS 11/06/2012 - 12/08/2013 Provider: Diagnosis: Once wkly Calcium 600+D3 600-200 MG-UNIT OR TABS 11/06/2012 - 12/09/19 14 Provider: Diagnosis: Medications Administered Includes: Administered Medications in patient's chartNo Administered Medications Recorded Vital Signs Includes: Vital Signs from 04/01/2020 through 04/01/2021No Vital Signs Recorded For Specified Dates Results Includes: Results from 04/01/2020 through 04/01/2021No Results Recorded For Specified Dates History of Present Illness History of Present Illness not supported for this document typeNo History of Present Illness Recorded Social History Description Last Updated Tobacco non-user 07/04/2020 No tobacco use 12/20/2019 Not using drugs 12/20/2019 Smoking status : Former smoker 12/20/2019 Alcohol 05/13/2019 Alcohol use seldom 05/09/2015 Previous smoking history 06/10/2013 Procedures and Surgical History Includes: Procedures from 04/01/2020 through 04/01/2021 Procedures Code Diagnosis Performing Provider Service Location Service Date Intermediate Eye Exam Established Patient [id number] Nexdtve age-related mclr degn, bilateral, early dry stage, Essential (primary) hypertension, Personal history of nicotine dependence, Cortical age-related cataract, bilateral Km Louis MD, YANDEL Tellez MD [facility] 07/04/2020 Surgical History Last Updated Surgical / procedural history : [place] ctomy, Ectopic , Colon Surgery, Mastectomy, Left Knee Replacement, Lumpectomy 200112/08/2013 Medical History Includes: Medical History in patient's chart Description Last Updated No recent change in medical history COVID Vaccine Mod sajan Dose 1 on 07/03/2020 07/04/2020 Reported medical history : Breast Cancer treated with mastectomy and chemotherapy, COVID Vaccine Moderna Dose 1 on 07/03/2020 07/04/2020 Essential hypertension 05/09/2015 Currently wearing eyeglasses 11/06/2012 History of arthritis 11/06/2012 History of hypertension 11/06/2012 Family History Includes: Family History in patient's chart Description Last Updated Fraternal history of arthritis 10/04/2014 Maternal history of arthritis 10/04/2014 Maternal history of hypertension 10/04/2014 Sororal history of arthritis 10/04/2014 Sororal history of cataract 10/04/2014 Sororal history of hypertension 10/04/2014 Sororal history of macular degeneration 10/04/2014 Review of Systems Review of Systems not supported for this document typeNo Review of Systems Recorded Mental Status Mental Status not supported for this document typeNo Mental Status Recorded Functional Status Functional Status not supported for this document typeNo Functional Status Recorded Physical Exam Physical Exam not supported for this document typeNo Physical Exam Recorded Immunizations Includes: Immunizations in patient's chartNo Immunizations Recorded Allergies Includes: Active, inactive, and resolved AllergiesNo Known Allergies Encounters Includes: Encounters from 04/01/2020 through 04/01/2021 Encounter Provider Location Date Check-In Time Check-Out Time D iagnosis 6 Month follow up with testing Km Tellez MD [facility] 01/12/2021 07/04/2020 8:30AM 9:38AM 6 Month Follow-Up Km Tellez MD, FACS Km Tellez MD [facility] 07/04/2020 9:10AM 10:28AM History of Nicotine Dependence, Essential Hypertension, Cataract Senile Cortical, Cataract Senile Nuclear, Macular Degeneration Nonexudative Bilateral Early Dry Stage Insurance Includes: Active Insurance Policies Plan Name Member ID Group # Subscriber Relationship Effective Da stefan 1 - Medicare Part B [facility] ([facility]) [id number] Lilian Sutton 2 - [employer] /PRIOR AUTHS NEEDED [id number] Lilian Kapoor Self Advance Directives Includes: Current Advance DirectivesNo Advance Directives Recorded Health Concerns Includes: Active Health ConcernsNo Active Health Concerns Recorded Goals Includes: Active GoalsNo Active Goals Recorded Interventions Includes: Interventions for active GoalsNo Interventions Recorded Evaluations & Outcomes Includes: Evaluations & Outcomes for active GoalsNo Outcomes Recorded
--- OUTSIDE RECORDS SUMMARY | 2021-05-03 10:28 | CCD ---
Author Author [facility] Organization [facility] Address Unknown Phone Unavailable Care Team Providers Care Molder Offbearer Name Role Phone [facility] Roselyn [facility], PA-C Unavailable Unavailabl e Fish, [facility], PA-C Un[facility] Un[facility] Un[facility] Un[facility] Unavailable Unavailabl e Fish, [facility], PA-C Unavailable Unavailabl e Fish, [facility], PA-C Unavailable Unavailabl e Fish, [facility], PA-C Unavailable Unavailabl e Fish, [facility], PA-C Unavailable Unavailabl e Fish, [facility], PA-C Unavailable Unavailabl e Fish, [facility], PA-C Unavailable Unavailabl e Fish, [facility], PA-C Unavailable Unavailabl e Fish, [facility], PA-C Unavailable Unavailabl e Fish, [facility], PA-C Unavailable Unavailabl e Fish, [facility], PA-C Unavailable Unavailabl e Fish, [facility], PA-C Unavailable Unavailabl e Fish, [facility], PA-C Unavailable Unavailabl e Fish, [facility], PA-C Unavailable Unavailabl e Fish, [facility], PA-C Unavailable Unavailabl e Fish, [facility], PA-C Unavailable Unavailabl e Fish, [facility], PA-C Unavailable Unavailabl e Fish, [facility], PA-C Unavailable Unavailabl e Fish, [facility], PA-C Unavailable Unavailabl e Fish, [facility], PA-C Unavailable Unavailabl e Fish, [facility], PA-C Unavailable Unavailabl e Fish, [facility], PA-C Unavailable Unavailabl e Fish, [facility], PA-C Unavailable Unavailabl e Fish, [facility], PA-C Unavailable Unavailabl e Fish, [facility], PA-C Unavailable Unavailabl e Fish, [facility], PA-C Unavailable Unavailabl e Fish, [facility], PA-C Unavailable Unavailabl e Fish, [facility], PA-C Unavailable Unavailabl e Fish, [facility], PA-C Unavailable Unavailabl e Fish, [facility], PA-C Unavailable Unavailabl e Fish, [facility], PA-C Unavailable Unavailabl e LETTIERE, A NATHALIA PA Unavailable Unavailable LETTIERE, A NATHALIA PA Unavailable Unavailable LETTIERE, A NATHALIA PA Unavailable Unavailable LETTIERE, A NATHALIA PA Unavailable Unavailable LETTIERE, A NATHALIA PA Unavailable Unavailable LETTIERE, A NATHALIA PA Unavailable Unavailable LETTIERE, A NATHALIA PA Unavailable Unavailable LETTIERE, A NATHALIA PA Unavailable Unavailable LETTIERE, A NATHALIA PA Unavailable Unavailable LETTIERE, A NATHALIA PA Unavailable Unavailable LETTIERE, A NATHALIA PA Unavailable Unavailable LETTIERE, A NATHALIA PA Unavailable Unavailable LETTIERE, A NATHALIA PA Unavailable Unavailable LETTIERE, A NATHALIA PA Unavailable Unavailable LETTIERE, A NATHALIA PA Unavailable Unavailable LETTIERE, A NATHALIA PA Unavailable Unavailable LETTIERE, A NATHALIA PA Unavailable Unavailable LETTIERE, A NATHALIA PA Unavailable Unavailable LETTIERE, A NATHALIA PA Unavailable Unavailable LETTIERE, A NATHALIA PA Unavailable Unavailable LETTIERE, A NATHALIA PA Unavailable Unavailable LETTIERE, A NATHALIA PA Unavailable Unavailable LETTIERE, A NATHALIA PA Unavailable Unavailable LETTIERE, A NATHALIA PA Unavailable Unavailable LETTIERE, A NATHALIA PA Unavailable Unavailable LETTIERE, A NATHALIA PA Unavailable Unavailable LETTIERE, A NATHALIA PA Unavailable Unavailable LETTIERE, A NATHALIA PA Unavailable Unavailable LETTIERE, A NATHALIA PA Unavailable Unavailable LETTIERE, A NATHALIA PA Unavailable Unavailable LETTIERE, A NATHALIA PA Unavailable Unavailable Fish, [facility], PA-C Unavailable Unavailabl e Fish, [facility], PA-C Unavailable Unavailabl e Fish, [facility], PA-C Unavailable Unavailabl e Fish, [facility], PA-C Unavailable Unavailabl e Fish, [facility], PA-C Unavailable Unavailabl e Fish, [facility], PA-C Unavailable Unavailabl e Fish, [facility], PA-C Unavailable Unavailabl e Fish, [facility], PA-C Unavailable Unavailabl e Fish, [facility], PA-C Unavailable Unavailabl e Fish, [facility], PA-C Unavailable Unavailabl e Fish, [facility], PA-C Unavailable Unavailabl e Fish, [facility], PA-C Unavailable Unavailabl e Fish, [facility], PA-C Unavailable Unavailabl e Fish, [facility], PA-C Unavailable Unavailabl e Fish, [facility], PA-C Unavailable Unavailabl e Fish, [facility], PA-C Unavailable Unavailabl e Fish, [facility], PA-C Unavailable Unavailabl e Fish, [facility], PA-C Unavailable Unavailabl e Fish, [facility], PA-C Unavailable Unavailabl e Fish, [facility], PA-C Unavailable Unavailabl e Fish, [facility], PA-C Unavailable Unavailabl e Fish, [facility], PA-C Unavailable Unavailabl e Fish, [facility], PA-C Unavailable Unavailabl e Fish, [facility], PA-C Unavailable Unavailabl e Fish, [facility], PA-C Unavailable Unavailabl e Fish, [facility], PA-C Unavailable Unavailabl e Fish, [facility], PA-C Unavailable Unavailabl e Fish, [facility], PA-C Unavailable Unavailabl e Fish, [facility], PA-C Unavailable Unavailabl e Fish, [facility], PA-C Unavailable Unavailabl e Fish, [facility], PA-C Unavailable Unavailabl e Fish, [facility], PA-C Unavailable Unavailabl e Fish, [facility], PA-C Unavailable Unavailabl e Fish, [facility], PA-C Unavailable Unavailabl e Fish, [facility], PA-C Unavailable Unavailabl e Fish, [facility], PA-C Unavailable Unavailabl e AlbrightsvilleUsman MD Unavailable Unavailable Albrights[place]Usman MD Unavailable Unavailable [place]rights[place]Usman MD Unavailable Unavailable [place]Usman MD Unavailable Unavailable [place]Usman MD Unavailable Unavailable [place]Usman MD Unavailable Unavailable [place]Usman MD Unavailable Unavailable [place]Usman MD Unavailable Unavailable [place]Usman MD Unavailable Unavailable [place]Usman MD Unavailable Unavailable [place]Usman MD Unavailable Unavailable [place]Usman MD Unavailable Unavailable [place]Usman MD Unavailable Unavailable [place]Usman MD Unavailable Unavailable [place]Usman MD Unavailable Unavailable [place]Usman MD Unavailable Unavailable [place]Usman MD Unavailable Unavailable [place]Usman MD Unavailable Unavailable [place]Usman MD Unavailable Unavailable [place]Usman MD Unavailable Unavailable [place]Usman MD Unavailable Unavailable [place]Usman MD Unavailable Unavailable [place]man MD Unavailable Unavailable [place]Usman MD Unavailable Unavailable [place] MD Unavailable Unavailable [place]Usman MD Unavailable Unavailable [place]Usman MD Unavailable Unavailable [place]Usman MD Unavailable Unavailable [place]Usman MD Unavailable Unavailable [place]Usman MD Unavailable Unavailable [place]Usman MD Unavailable Unavailable Lorin Dover MD Unavailable Unavailable Lorin Dover MD Unavailable Unavailable Lorin Dover MD Unavailable Unavailable Lorin Dover MD Unavailable Unavailable Lorin Dover MD Unavailable Unavailable Dykes, C Dann MD Unavailable Unavailable Dykes, C Dann MD Unavailable Unavailable Dykes, C Dann MD Unavailable Unavailable Dykes, C Dann MD Unavailable Unavailable Dykes, C Dann MD Unavailable Unavailable Dykes, C Dann MD Unavailable Unavailable Dykes, C Dann MD Unavailable Unavailable Dykes, C Dann MD Unavailable Unavailable Dykes, C Dann MD Unavailable Unavailable Dykes, C Dann MD Unavailable Unavailable Dykes, C Dann MD Unavailable Unavailable Dykes, C Dann MD Unavailable Unavailable Dykes, C Dann MD Unavailable Unavailable Dykes, C Dann MD Unavailable Unavailable Dykes, C Dann MD Unavailable Unavailable Dykes, C Dann MD Unavailable Unavailable Dykes, C Dann MD Unavailable Unavailable Dykes, C Dann MD Unavailable Unavailable Dykes, C Dann MD Unavailable Unavailable Dykes, C Dann MD Unavailable Unavailable Dykes, C Dann MD Unavailable Unavailable Dykes, C Dann MD Unavailable Unavailable Dykes, C Dann MD Unavailable Unavailable Dykes, C Dann MD Unavailable Unavailable Dykes, C Dann MD Unavailable Unavailable Dykes, C Dann MD Unavailable Unavailable Dykes, C Dann MD Unavailable Unavailable Dykes, C Dann MD Unavailable Unavailable Dykes, C Dann MD Unavailable Unavailable Dykes, C Dann MD Unavailable Unavailable Dykes, C Dann MD Unavailable Unavailable Dykes, C Dann MD Unavailable Unavailable Dykes, C Dann MD Unavailable Unavailable Dykes, C Dann MD Unavailable Unavailable Bullock, Zahra MEDICAL SCIENTIST Unavailable Unavailable Bullock, Zahra MEDICAL SCIENTIST Unavailable Unavailable Bullock, Zahra MEDICAL SCIENTIST Unavailable Unavailable Bullock, Zahra MEDICAL SCIENTIST Unavailable Unavailable Bullock, Zahra MEDICAL SCIENTIST Unavailable Unavailable Bullock, Zahra MEDICAL SCIENTIST Unavailable Unavailable Bullock, Zahra MEDICAL SCIENTIST Unavailable Unavailable Bullock, Zahra MEDICAL SCIENTIST Unavailable Unavailable Bullock, Zahra MEDICAL SCIENTIST Unavailable Unavailable Bullock, Zahra MEDICAL SCIENTIST Unavailable Unavailable Bullock, Zahra MEDICAL SCIENTIST Unavailable Unavailable Bullock, Zahra MEDICAL SCIENTIST Unavailable Unavailable Bullock, Zahra MEDICAL SCIENTIST Unavailable Unavailable Bullock, Zahra MEDICAL SCIENTIST Unavailable Unavailable Bullock, Zahra MEDICAL SCIENTIST Unavailable Unavailable Bullock, Zahra MEDICAL SCIENTIST Unavailable Unavailable Bullock, Zahra MEDICAL SCIENTIST Unavailable Unavailable Bullock, Zahra MEDICAL SCIENTIST Unavailable Unavailable Bullock, Zahra MEDICAL SCIENTIST Unavailable Unavailable Bullock, Zahra MEDICAL SCIENTIST Unavailable Unavailable Bullock, Zahra MEDICAL SCIENTIST Unavailable Unavailable Bullock, Zahra MEDICAL SCIENTIST Unavailable Unavailable Bullock, Zahra MEDICAL SCIENTIST Unavailable Unavailable Bullock, Zahra MEDICAL SCIENTIST Unavailable Unavailable Bullock, Zahra MEDICAL SCIENTIST Unavailable Unavailable Bullock, Zahra MEDICAL SCIENTIST Unavailable Unavailable Bullock, Zahra MEDICAL SCIENTIST Unavailable Unavailable Bullock, Zahra MEDICAL SCIENTIST Unavailable Unavailable Bullock, Zahra MEDICAL SCIENTIST Unavailable Unavailable Bullock, Zahra MEDICAL SCIENTIST Unavailable Unavailable Bullock, Zahra MEDICAL SCIENTIST Unavailable Unavailable Bullock, Zahra MEDICAL SCIENTIST Unavailable Unavailable Bullock, Zahra MEDICAL SCIENTIST Unavailable Unavailable Bullock, Zahra MEDICAL SCIENTIST Unavailable Unavailable Bullock, Zahra MEDICAL SCIENTIST Unavailable Unavailable Bullock, Zahra MEDICAL SCIENTIST Unavailable Unavailable Pk Dixon MD Unavailable Unavailable Pk Dixon MD Unavailable Unavailable Pk Dixon MD Unavailable Unavailable Pk Dixon MD Unavailable Unavailable Pk Dixon MD Unavailable Unavailable Pk Dixon MD Unavailable Unavailable Pk Dixon MD Unavailable Unavailable Pk Dixon MD Unavailable Unavailable Pk Dixon MD Unavailable Unavailable Pk Dixon MD Unavailable Unavailable Pk Dixon MD Unavailable Unavailable Pk Dixon MD Unavailable Unavailable Pk Dixon MD Unavailable Unavailable Pk Dixon MD Unavailable Unavailable Pk Dixon MD Unavailable Unavailable Pk Dixon MD Unavailable Unavailable Pk Dixon MD Unavailable Unavailable Pk Dixon MD Unavailable Unavailable Pk Dixon MD Unavailable Unavailable Pk Dixon MD Unavailable Unavailable Pk Dixon MD Unavailable Unavailable Pk Dixon MD Unavailable Unavailable Pk Dixon MD Unavailable Unavailable Pk Dixon MD Unavailable Unavailable Pk Dixon MD Unavailable Unavailable Pk Dixon MD Unavailable Unavailable Pk Dixon MD Unavailable Unavailable Zack B Melany HERNANDEZ Unavailable Unavailable Pk Dixon MD Unavailable Unavailable Fish, Pk Mosley MD Unavailable Unavailable Fish, Pk Mosley MD Unavailable Unavailable Fish, Pk Mosley MD Unavailable Unavailable Fish, Pk Mosley MD Unavailable Unavailable Fish, Pk Mosley MD Unavailable Unavailable Fish, Pk Mosley MD Unavailable Unavailable Fish, Pk Mosley MD Unavailable Unavailable Fish, Pk Mosley MD Unavailable Unavailable Fish, Pk Mosley MD Unavailable Unavailable Fish, Pk Mosley MD Unavailable Unavailable Fish, Pk Mosley MD Unavailable Unavailable Fish, Pk Mosley MD Unavailable Unavailable Fish, Pk Mosley MD Unavailable Unavailable Fish, Pk Mosley MD Unavailable Unavailable Fish, Pk Mosley MD Unavailable Unavailable Fish, Pk Mosley MD Unavailable Unavailable Fish, Pk Mosley MD Unavailable Unavailable Fish, B Melany HERNANDEZ Unavailable Unavailable Fish, B Melany HERNANDEZ Unavailable Unavailable Fish, B Melany HERNANDEZ Unavailable Unavailable Fish, B Melany HERNANDEZ Unavailable Unavailable Fish, B Melany HERNANDEZ Unavailable Unavailable Fish, Pk Mosley MD Unavailable Unavailable Fish, B Melany HERNANDEZ Unavailable Unavailable Fish, Pk Mosley MD Unavailable Unavailable Fish, B Melany HERNANDEZ Unavailable Unavailable Fish, Pk Mosley MD Unavailable Unavailable Fish, Pk Mosley MD Unavailable Unavailable Fish, Pk Mosley MD Unavailable Unavailable Fish, Pk Mosley MD Unavailable Unavailable Fish, Pk Mosley MD Unavailable Unavailable Fish, Pk Mosley MD Unavailable Unavailable Fish, Pk Mosley MD Unavailable Unavailable Fish, Pk Mosley MD Unavailable Unavailable Fish, Pk Mosley MD Unavailable Unavailable Fish, Pk Mosley MD Unavailable Unavailable Ronaldo Louis, Irena Barbour MD, FACS Unavailable Unavailable Higgins Louis, Irena Barbour MD, FACS Unavailable Unavailable Higgins Louis, Irena Barbour MD, FACS Unavailable Unavailable Higgins Louis, Irena Barbour MD, FACS Unavailable Unavailable Higgins Louis, Irena Barbour MD, FACS Unavailable Unavailable Higgins Louis, Irena Barbour MD, FACS Unavailable Unavailable Higgins Louis, Irena Barbour MD, FACS Unavailable Unavailable Higgins Louis, Irena Barbour MD, FACS Unavailable Unavailable Higgins Louis, Irena Barbour MD, FACS Unavailable Unavailable Higgins Louis, Irena Barbour MD, FACS Unavailable Unavailable Higgins Louis, Irena Barbour MD, FACS Unavailable Unavailable Higgins Louis, Irena Barbour MD, FACS Unavailable Unavailable Higgins Louis, Irena Barbour MD, FACS Unavailable Unavailable Higgins Louis, Irena Barbour MD, FACS Unavailable Unavailable Higgins Louis, Irena Barbour MD, FACS Unavailable Unavailable Higgins Louis, Irena Barbour MD, FACS Unavailable Unavailable Higgins Heriberto, Irena Barbour MD, FACS Unavailable Unavailable Higgins Louis, Irena Barbour MD, FACS Unavailable Unavailable Higgins Louis, Irena Barbour MD, FACS Unavailable Unavailable Higgins Louis, Irena Barbour MD, FACS Unavailable Unavailable Higgins Louis, Irena Barbour MD, FACS Unavailable Unavailable Higgins Louis, Irena Barbour MD, FACS Unavailable Unavailable Higgins Louis, Irena Barbour MD, FACS Unavailable Unavailable Higgins Louis, Irena Barbour MD, FACS Unavailable Unavailable Higgins Louis, Irena Barbour MD, FACS Unavailable Unavailable Higgins Louis, Irena Barbour MD, FACS Unavailable Unavailable Higgins Louis, Irena Barbour MD, FACS Unavailable Unavailable Higgins Louis, Irena Barbour MD, FACS Unavailable Unavailable Higgins Louis, Irena Barbour MD, FACS Unavailable Unavailable Higgins Louis, Irena Barbour MD, FACS Unavailable Unavailable Higgins Louis, Irena Barbour MD, FACS Unavailable Unavailable Higgins Louis, Irena Barbour MD, FACS Unavailable Unavailable Higgins Louis, Irena Barbour MD, FACS Unavailable Unavailable Higgins Louis, Irena Barbour MD, FACS Unavailable Unavailable Higgins Louis, Irena Barbour MD, FACS Unavailable Unavailable Higgins Louis, Irena Barbour MD, FACS Unavailable Unavailable Higgins Louis, Irena Barbour MD, FACS Unavailable Unavailable Higgins Louis, Irena Barbour MD, FACS Unavailable Unavailable Higgins Louis, Irena Barbour MD, FACS Unavailable Unavailable EMERTON, A BANDAR HERNANDEZ Unavailable Unavailable EMERTON, A BANDAR MD Unavailable Unavailable EMERTON, A BANDAR MD Unavailable Unavailable EMERTON, A BANDAR MD Unavailable Unavailable EMERTON, A BANDAR MD Unavailable Unavailable EMERTON, A BANDAR MD Unavailable Unavailable EMERTON, A BANDAR MD Unavailable Unavailable EMERTON, A BANDAR MD Unavailable Unavailable EMERTON, A BANDAR MD Unavailable Unavailable EMERTON, A BANDAR MD Unavailable Unavailable EMERTON, A BANDAR MD Unavailable Unavailable EMERTON, A BANDAR MD Unavailable Unavailable EMERTON, A BANDAR MD Unavailable Unavailable EMERTON, A BANDAR MD Unavailable Unavailable EMERTON, A BANDAR MD Unavailable Unavailable EMERTON, A BANDAR MD Unavailable Unavailable EMERTON, A BANDAR MD Unavailable Unavailable EMERTON, A BANDAR MD Unavailable Unavailable EMERTON, A BANDAR MD Unavailable Unavailable EMERTON, A BANDAR MD Unavailable Unavailable EMERTON, A BANDAR MD Unavailable Unavailable EMERTON, A BANDAR MD Unavailable Unavailable EMERTON, A BANDAR MD Unavailable Unavailable EMERTON, A BANDAR MD Unavailable Unavailable EMERTON, A BANDAR MD Unavailable Unavailable EMERTON, A BANDAR MD Unavailable Unavailable EMERTON, A BANDAR MD Unavailable Unavailable EMERTON, A BANDAR MD Unavailable Unavailable EMERTON, A BANDAR MD Unavailable Unavailable EMERTON, A BANDAR MD Unavailable Unavailable EMERTON, A BANDAR MD Unavailable Unavailable EMERTON, A BANDAR MD Unavailable Unavailable EMERTON, A BANDAR MD Unavailable Unavailable EMERTON, A BANDAR MD Unavailable Unavailable EMERTON, A BANDAR MD Unavailable Unavailable EMERTON, A BANDAR MD Unavailable Unavailable EMERTON, A BANDAR MD Unavailable Unavailable EMERTON, A BANDAR MD Unavailable Unavailable EMERTON, A BANDAR MD Unavailable Unavailable EMERTON, A BANDAR MD Unavailable Unavailable EMERTON, A BANDAR MD Unavailable Unavailable EMERTON, A BANDAR MD Unavailable Unavailable EMERTON, A BANDAR MD Unavailable Unavailable EMERTON, A BANDAR MD Unavailable Unavailable EMERTON, A BANDAR MD Unavailable Unavailable EMERTON, A BANDAR MD Unavailable Unavailable EMERTON, A BANDAR MD Unavailable Unavailable EMERTON, A BANDAR MD Unavailable Unavailable EMERTON, A BANDAR MD Unavailable Unavailable EMERTON, A BANDAR MD Unavailable Unavailable EMERTON, A BANDAR MD Unavailable Unavailable EMERTON, A BANDAR MD Unavailable Unavailable EMERTON, A BANDAR MD Unavailable Unavailable EMERTON, A BANDAR MD Unavailable Unavailable EMERTON, A BANDAR MD Unavailable Unavailable EMERTON, A BANDAR MD Unavailable Unavailable EMERTON, A BANDAR MD Unavailable Unavailable EMERTON, A BANDAR MD Unavailable Unavailable EMERTON, A BANDAR MD Unavailable Unavailable EMERTON, A BANDAR MD Unavailable Unavailable EMERTON, A BANDAR MD Unavailable Unavailable EMERTON, A BANDAR MD Unavailable Unavailable EMERTON, A BANDAR MD Unavailable Unavailable EMERTON, A BANDAR MD Unavailable Unavailable EMERTON, A BANDAR MD Unavailable Unavailable EMERTON, A BANDAR MD Unavailable Unavailable EMERTON, A BANDAR MD Unavailable Unavailable EMERTON, A BANDAR MD Unavailable Unavailable EMERTON, A BANDAR MD Unavailable Unavailable EMERTON, A BANDAR MD Unavailable Unavailable EMERTON, A BANDAR MD Unavailable Unavailable EMERTON, A BANDAR MD Unavailable Unavailable EMERTON, A BANDAR MD Unavailable Unavailable EMERTON, A BANDAR MD Unavailable Unavailable EMERTON, A BANDAR MD Unavailable Unavailable EMERTON, A BANDAR MD Unavailable Unavailable EMERTON, A BANDAR MD Unavailable Unavailable Re-disclosure Warning The records that you are about to access may contain information from federally-assisted alcohol or drug abuse programs. If such information is present, then the following federally mandated warning applies: This information has been disclosed to you from records protected by federal confidentiality rules (42 CFR part 2). The federal rules prohibit you from making any further disclosure of this information unless further disclosure is expressly permitted by the written consent of the person to whom it pertains or as otherwise permitted by 42 CFR part 2. A general authorization for the release of medical or other information is NOT sufficient for this purpose. The Federal rules restrict any use of the information to criminally investigate or prosecute any alcohol or drug abuse patient.The records that you are about to access may contain highly sensitive health information, the redisclosure of which is protected by Article 27-F of the [facility] Public Health law. If you continue you may have access to information: Regarding HIV / AIDS; Provided by facilities licensed or operated by the [facility] Office of Mental Health; or Provided by the [facility] Office for People With Developmental Disabilities. If such information is present, then the following [facility] mandated warning applies: This information has been disclosed to you from confidential records which are protected by state law. State law prohibits you from making any further disclosure of this information without the specific written consent of the person to whom it pertains, or as otherwise permitted by law. Any unauthorized further disclosure in violation of state law may result in a fine or long-term sentence or both. A general authorization for the release of medical or other information is NOT sufficient authorization for further disc losure. Allergies and Adverse Reactions Type Description Substance Reaction Status Data Source(s ) Propensity to adverse reactions NO KNOWN ALLERGIES NO KNOWN ALLERGIES [facility] Allergy to substance No Known Allergies No known allergies (situation ) MARY (Km Louis MD [facility]) Family History Family Member Name Family Member Gender Family Member Status Date o f Status Description Data Source(s) Unknown Unknown Problem [facility] ([facility]) Unknown Unknown Problem [facility] ([facility], [facility]) Unknown Female Problem [facility] ([facility]) Unknown Female Problem [facility] ([facility]) Unknown Female Problem [facility] ([facility]) Encounters Encounter Providers Location Date Indications Data Source(s ) Outpatient Attender: NATHALIA tapia 04/24/2021 09:00:00 AM EST [facility] ([facility], [facility]) Outpatient Attender: Usman Rooney/Marcio/Jesus/Reind l 03/20/2021 09:50:00 AM EDT [facility] ([facility] Outpatient Attender: Usman Rooney/Marcio/Jesus/Reind l 02/14/2021 10:10:00 AM EDT [facility] ([facility]) Outpatient Attender: Catarina Skaggs [facility] Main Office 01/08/2021 10:15:00 AM EDT [facility] ([facility]) Outpatient Attender: Dann Dover MD [id number] 2020 12:00:00 AM EDT - 12/29/2020 12:11:34 PM [facility] Outpatient Attender: Dann Dover MD 12/22/2020 12:00:00 A M [facility] Office Visit Attender: Mami LUDWIG PA-C Physical Therapy 12/14/2020 04:20:00 PM EDT [facility] ([facility]) Outpatient Attender: YOHANA Layneonsultant: BANDAR WANG MD 12/11/2020 11:47:00 AM EDT - 12/11/2020 12:47:00 PM EDT [facility] Outpatient Attender: Mami LUDWIG PA-C Physical Therapy 12/05/2020 02:00:00 PM EDT [facility] ([facility]) OFFICE OUTPATIENT VISIT 15 MINUTES Attender: Melany Dixon MD Phy sical Therapy 11/06/2020 01:30:00 PM EDT [facility] ([facility]) <td ID="encounterTypeDescriptionID1">6 M ont Follow-Up</td><td>Km Louis MD, FACS</td><td>Km Tellez MD [facility]</td><td>07/04/2020</td><td>9:10AM</td><td>10:28AM</td><td><content ID="encounterDiagnosisID1-0">History of Nicotine Dependence</content>, <content ID="encounterDiagnosisID1-1">Essential Hypertension</content>, <content ID="encounterDiagnosisID1-2">Cataract Senile Cortical</content>, <content ID="encounterDiagnosisID1-3">Cataract Senile Nuclear</content>, <content ID="encounterDiagnosisID1-4">Macular Degeneration Nonexudative Bilateral Early Dry Stage</content></td>Outpatient Attender: Km Louis MD, FACS Km Tellez MD [facility] 07/04/2020 09:10:00 AM EST - 07/04/2020 10:28:00 AM ES T Macular Degeneration Nonexudative Bilateral Early Dry StageEssential HypertensionCataract Senile CorticalHistory of Nicotine DependenceCataract Senile Nuclear MARY (Km Louis MD [facility]) Macular Degeneration Nonexudative Bilate ral Early Dry Stage Essential Hypertension Cataract Senile Cortical History of Nicotine Dependence Cataract Senile Nuclear <td ID="encounterTypeDescriptionID0">6 [place] follow up with testing</td><td></td><td>Km Tellez MD [facility]</td><td>01/12/2021</td><td>07/04/2020 8:30AM</td><td>9:38AM</td><td></td>Outpatient Km basilio MD [facility] 07/04/2020 08:30:00 AM EST - 01/12/2021 09:38:00 AM EDT MARY (Km Louis MD [facility]) Outpatient [address] [facility] [address] 03/21/2020 12:00:00 AM EDT eCW1 ([facility]) ([facility]) [place] [address] [facility] [address] 03/15/2020 12:00:00 AM EDT eCW1 ([facility]) Immunizations Vaccine Date Status Description Data Source(s) COVID-19 VACCINE Moderna 08/02/2020 12:00:00 AM EST completed [facility] Vaccine Series Complete: YESThis Data wa s Submitted to [facility] Via [employer]. COVID-19 VACCINE, MRNA-1273, LNP-S (MODERNA)/PF 08/02/2020 1 2:00:00 AM EST completed [facility] COVID-19 VACCINE Moderna 07/03/2020 12:00:00 AM EST completed [facility] Vaccine Series Complete: NOThis Data was Submitted to [facility] Via [employer]. COVID-19 VACCINE, MRNA-1273, LNP-S (MODERNA)/PF 07/03/2020 1 2:00:00 AM EST completed [facility] INFLUENZA VIRUS VACCINE QUADRIVAL SPLIT 2019-(65 YR UP)/PF 03/15/2020 12:00:00 AM EDT completed [facility] Medications Medication Brand Name Start Date Product Form Dose Route Admi nistrative Instructions Pharmacy Instructions Status Indications Reaction Description Data Source(s) Ipratropium [place] Ipratropium [place] 04/30/2021 12:00:00 AM EST active [facility] ([facility], ) 42 mcg (0.06 %) 04/30/2021 12:00:00 AM EST spray,non-aerosol 15 SPRAY 2 SPRAYS IN EACH NOSTRIL TWO TIMES A DAY SPRAY 2 SPRAYS IN EACH NOSTRIL TWO TIMES A DAY SOLD: 04/30/2021 [facility] 12 HR Dextromethorphan Hydrobromide 60 M G / Guaifenesin 1200 MG Extended Release Oral Tablet [Mucinex DM] 60-1,200 mg GUAIFENESIN/DEXTROMETHORPHAN 04/25/2021 12:00:00 AM EST tablet extended release 12 hr 20 TA KE ONE BY MOUTH TWICE A DAY NEEDED FOR CONGESTION OR COUGH TAKE ONE BY MOUTH TWICE A DAY NEEDED FOR CONGESTION OR COUGH SOLD: 04/25/2021 [facility] Amoxicillin 875 MG Oral Tablet Amoxicillin 04/24/2021 12:00:00 AM EST active [facility] ([facility]) Prednisone 10 MG Oral Tablet Prednisone 04/24/2021 12:00:00 AM EST active [facility] ([facility]) 10 mg 04/24/2021 12:00:00 AM EST tablet 10 TAKE 1 TABLET BY MOUTH IN THE MORNING AND AT NIGHT FOR 5 DAYS TAKE 1 TABLET BY MOUTH IN THE MORNING AN D AT NIGHT FOR 5 DAYS SOLD: 04/24/2021 [facility] 875 mg 04/24/2021 12:00:00 AM EST tablet 20 TAKE 1 TABLET BY EVERY 12 HOURS FOR 10 DAYS TAKE 1 TABLET BY EVERY 12 HOURS FOR 10 DAYS SOLD: 04/24/2021 [facility] 100 mg 04/03/2021 12:00:00 AM EDT capsule 90 TAKE TWO CAPSULES BY MOUTH TWICE A DAY MAY TITRATE TO TAKE TWO CAPSULES BY MOUTH THREE TIMES A DAY NEEDED TAKE TWO CAPSULES BY MOUTH TWICE A DAY M AY TITRATE TO TAKE TWO CAPSULES BY MOUTH THREE TIMES A DAY NEEDED SOLD: 04/06/2021 [facility] 240 mcg/0.7 mL 03/08/2021 12:00:00 AM EDT syringe 0 DIRECTED DIRECTED SOLD: 03/08/2021 [facility] Sinus Rinse Bottle Kit 02/14/2021 12:00:00 AM EDT active MED[facility] ([facility], ) SOD CHLOR,BICARB/SQUEEZ BOTTLE 02/14/2021 12:00: 00 AM EDT packet with rinse device 50 USE DIRECTED ONCE DAILY USE DIRECTE D ONCE DAILY SOLD: 02/23/2021 [facility] Bacitracin 0.5 UNT/MG / Polymyxin B 10 UNT/MG Topical Ointment [Polysporin] Polysporin 02/14/2021 12:00:00 AM EDT active [facility] ([facility], ) Bacitracin 0.5 UNT/MG / Polymyxin B 10 U NT/MG Topical Ointment 500-10,000 unit/gram BACITRACIN ZINC/POLYMYXIN B 02/14/2021 12:00:00 AM EDT ointment 28 APPLY OINTMENT TOPICALLY TO EACH NOSTRIL THREE TIMES A DAY FOR 10 DAYS APPLY OINTMENT TOPICALLY TO EACH NOSTRIL THREE TIMES A DAY FOR 10 DAYS SOLD: 02/23/2021 [facility] 100 mg 02/09/2021 12:00:00 AM EDT capsule 90 TAKE TWO CAPSULES BY MOUTH TWICE A DAY, MAY INCREASE TO TAKE TWO CAPSULES BY MOUTH THREE TIMES A DAY TAKE TWO CAPSULES BY MOUTH TWICE A DAY, MAY INCREASE TO TAKE TWO CAPSULES BY MOUTH THREE TIMES A DAY SOLD: 02/13/2021 [facility] 5 mg 02/07/2021 12:00:00 AM EDT tablet 90 TAKE ONE TABLET BY MOUTH EVERY DAY TAKE ONE TABLET BY MOUTH EVERY DAY SOLD: 02/09/2021 [facility] 500 mg 01/02/2021 12:00:00 AM EDT capsule 8 TAKE FOUR CAPSULES BY MOUTH 1 HOUR PRIOR TO DENTAL APPOINTMENT TAKE FOUR CAPSULES BY MOUTH 1 HOUR PRIOR TO DENTAL APPOINTMENT SOLD: 01/02/2021 [facility] 100 mg 12/21/2020 12:00:00 AM EDT capsule 90 TAKE TWO CAPSULES BY MOUTH TWICE A DAY MAY TITRATE TO TAKE TWO CAPSULES BY MOUTH THREE TIMES A DAY NEEDED TAKE TWO CAPSULES BY MOUTH TWICE A DAY M AY TITRATE TO TAKE TWO CAPSULES BY MOUTH THREE TIMES A DAY NEEDED SOLD: 12/23/2020 [facility] 50 mg 12/07/2020 12:00:00 AM EDT tablet 21 TAKE ONE TABLET BY MOUTH THREE TIMES A DAY MAXIMUM DAILY DOSE = 3 TAKE ONE TABLET BY MOUTH THREE TIMES A D AY MAXIMUM DAILY DOSE = 3 SOLD: 12/07/2020 [facility] tramadol hydrochloride 50 MG Oral Tablet Tramadol HCL 12/07/2020 12:00:00 AM EDT ORAL active [facility] ([facility] ) atorvastatin 10 MG Oral Tablet ATORVASTATIN CALCIUM 12/06/2020 1 2:00:00 AM EDT tablet 45 TAKE ONE TABLET BY MOUTH EVERY O THER DAY TAKE ONE TABLET BY MOUTH EVERY OTHER DAY SOLD: 12/07/2020 [facility] atorvastatin 10 MG Oral Tablet ATORVASTATIN CALCIUM 12/06/2020 1 2:00:00 AM EDT tablet 45 TAKE ONE TABLET BY MOUTH EVERY O THER DAY TAKE ONE TABLET BY MOUTH EVERY OTHER DAY SOLD: 03/16/2021 [facility] gabapentin 100 MG Oral Capsule Gabapentin 100 MG Oral Capsule (NEURONTIN) Gabapentin 100 MG Oral Capsule (NEURONTIN) 12/05/2020 12:00:00 AM EDT 200 mg active 200 mg [facility] 4 mg 12/05/2020 12:00:00 AM EDT tablets,dose pack 21 TAKE BY MOUTH DIRECTED TAKE BY MOUTH DIRECTED SOLD: 12/05/2020 [facility] 100 mg 12/05/2020 12:00:00 AM EDT capsule 90 TAKE TWO CAPSULES BY MOUTH TWICE A DAY DIRECTED MAY TITRATE TO 2 CAPSULES THREE TIMES A DAY NEEDED TAKE TWO CAPSULES BY MOUTH TWICE A DAY DIRECTED MAY TITRATE TO 2 CAPSULES THREE TIMES A DAY NEEDED SOLD: 12/05/2020 [facility] gabapentin 100 MG Oral Capsule Gabapentin 12/05/2020 12:00:00 AM EDT active [facility] ([facility] ) Methylprednisolone 4 MG Oral Tablet [Medrol] Medrol 10/2020 12:00:00 AM EDT active MED[facility] ( [facility] ) Prolia [facility]#[id number] (60mg Syringe) 1MG 11/06/2020 12:00:00 AM EDT completed [facility] ([facility]) Medication administered onsite Fluticasone Propionate 50 MCG/ACT Nasal Suspension (FLONASE) 6334-8385-58 10/13/2020 12:00:00 AM EDT active SPRAY 1 SPRAY IN EACH NOSTRIL ONCE A DAY [facility] 50 mcg/actuation 10/13/2020 12:00:00 AM EDT spray,suspension 16 SPRAY 1 SPRAY IN EACH NOSTRIL ONCE A DAY SPRAY 1 SPRAY IN EACH NOSTRIL ONCE A DAY SOLD: 2020 [facility] 50 mcg/actuation 10/13/2020 12:00:00 AM EDT spray,suspension 16 SPRAY 1 SPRAY IN EACH NOSTRIL ONCE A DAY SPRAY 1 SPRAY IN EACH NOSTRIL ONCE A DAY SOLD: 04/24/2021 [facility] 5 mg 09/30/2020 12:00:00 AM EDT tablet 30 TAKE ONE TABLET BY MOUTH EVERY DAY AT BEDTIME MAXIMUM DAILY DOSE = 1 TAKE ONE TABLET BY MOUTH EVERY DAY AT BE DTIME MAXIMUM DAILY DOSE = 1 SOLD: 10/04/2020 [facility] Zolpidem tartrate 5 MG Oral Tablet Zolpidem Tartrate 5 MG Oral Tablet (AMBIEN) Zolpidem Tartrate 5 MG Oral Tablet (AMBIEN) 09/30/2020 12:00:00 AM EDT active TAKE ONE TABLET BY MOUTH EVERY DAY AT BEDTIME MAXIMUM DAILY DOSE [address] [facility] 5 mg 09/30/2020 12:00:00 AM EDT tablet 30 TAKE ONE TABLET BY MOUTH EVERY DAY AT BEDTIME MAXIMUM DAILY DOSE = 1 TAKE ONE TABLET BY MOUTH EVERY DAY AT BE DTIME MAXIMUM DAILY DOSE = 1 SOLD: 02/13/2021 [facility] Amoxicillin 875 MG / Clavulanate 125 MG Oral Tablet 87 5-125 mg AMOXICILLIN/POTASSIUM CLAV 09/15/2020 12:00:00 AM EDT tablet 14 TAKE ONE TABLET BY MOUTH EVERY 12 HOURS FOR 7 DAYS TAKE ONE TABLET BY MOUTH EVERY 12 HOURS FOR 7 DAYS SOLD: 09/15/2020 [facility] 50 mg 08/02/2020 12:00:00 AM EST tablet 90 TAKE ONE TABLET BY MOUTH EVERY DAY WITH FOOD TAKE ONE TABLET BY MOUTH EVERY DAY WITH FOOD SOLD: 08/05/2020 [facility] 5 mg 07/27/2020 12:00:00 AM EST tablet 90 TAKE ONE TABLET BY MOUTH EVERY DAY TAKE ONE TABLET BY MOUTH EVERY DAY SOLD: 08/01/2020 [facility] 5 mg 07/27/2020 12:00:00 AM EST tablet 90 TAKE ONE TABLET BY MOUTH EVERY DAY TAKE ONE TABLET BY MOUTH EVERY DAY SOLD: 11/08/2020 [facility] atorvastatin 10 MG Oral Tablet ATORVASTATIN CALCIUM 06/12/2020 1 2:00:00 AM EST tablet 45 TAKE 1 TABLET BY MOUTH EVERY OTH ER DAY TAKE 1 TABLET BY MOUTH EVERY OTHER DAY SOLD: 06/14/2020 [facility] atorvastatin 10 MG Oral Tablet ATORVASTATIN CALCIUM 06/12/2020 1 2:00:00 AM EST tablet 45 TAKE 1 TABLET BY MOUTH EVERY OTH ER DAY TAKE 1 TABLET BY MOUTH EVERY OTHER DAY SOLD: 09/07/2020 [facility] 500 mg 05/05/2020 12:00:00 AM EST tablet 14 TAKE ONE TABLET BY MOUTH EVERY 12 HOURS FOR 7 DAYS TAKE ONE TABLET BY MOUTH EVERY 12 HOURS FOR 7 DAYS MICKI [facility] Metronidazole 500 MG Oral Tablet METRONIDAZOLE 05/05/2020 12:0 0:00 AM EST tablet 21 TAKE ONE TABLET BY MOUTH THREE T IMES A DAY FOR 7 DAYS TAKE ONE TABLET BY MOUTH THREE TIMES A DAY FOR 7 DAYS SOLD: 05/05/2020 [facility] Prolia [facility]#[id number] (60mg Syringe) 1MG 05/04/2020 12:00:00 AM EST [facility] Medication administered onsite Clobetasol Propionate 0.5 MG/ML Topical Cream 0.05 % CLOBETA MICKI PROPIONATE 02/25/2020 12:00:00 AM EDT cream 60 APPLY A SMALL AMOUNT TOPICALLY AT BEDTIME DIRECTED NEEDED APPLY A SMALL AMOUNT TOPICALLY AT BEDTIM E DIRECTED NEEDED SOLD: 03/08/2020 [facility] 50 mg 01/25/2020 12:00:00 AM EDT tablet 90 TAKE ONE TABLET BY MOUTH EVERY DAY WITH FOOD TAKE ONE TABLET BY MOUTH EVERY DAY WITH FOOD SOLD: 05/05/2020 [facility] 5 mg 01/12/2020 12:00:00 AM EDT tablet 90 TAKE ONE TABLET BY MOUTH EVERY DAY TAKE ONE TABLET BY MOUTH EVERY DAY SOLD: 04/25/2020 [facility] atorvastatin 10 MG Oral Tablet ATORVASTATIN CALCIUM 12/21/2019 1 2:00:00 AM EDT tablet 45 TAKE 1 TABLET BY MOUTH EVERY OTH ER DAY TAKE 1 TABLET BY MOUTH EVERY OTHER DAY SOLD: 03/26/2020 [facility] Docusate Sodium 100 MG Oral Capsule Docu sate Sodium 100 MG Oral Capsule (Stool Softener) Docusate Sodium 100 MG Oral Capsule (Stool Softener) aborted 1 capsule as needed [facility] Insurance Providers Payer name Policy type / Coverage type Policy ID Covered democrat ID Covered democrat's relationship to hewitt Policy [place] Plan Information [employer]OMCO [id number] SP [id number] POMCO [id number] SP [id number] MEDICARE A [id number] Self [id number] A MEDICARE [id number] SP [id number] A [id number] [place] Primary [id number] Self [id number] MEDICARE A [id number] Self [id number] MEDICARE [id number] SP [id number] A MEDICARE [id number] SP [id number] POMCO U [id number] Self [id number] UMR U [id number] Self [id number] UMR [facility] [id number] SP [id number] Umr (pr) [facility] Part B [id number] Self [id number] Medicare [place] Primary [id number] Self [id number] MEDICARE [id number] SP [id number] MEDICARE [id number] SP [id number] A [facility] [id number] Self [id number] Medicare [place] Medicare Primary [id number] Self [id number] Umr Commercial [id number] Self [id number] UMR [facility] [id number] SP [id number] POMCO [id number] SP [id number] Medicare [place] Medicare Primary [id number] Self [id number] [place] (pr) Medigap Part B [id number] Self [id number] POMCO PPO O [id number] S [id number] MEDICARE C [id number] S [id number] A MEDICARE PART A -O/P [id number] 18 [id number] UMR -O/P [id number] 18 [id number] Medicare [place] Medicare Primary [id number] Self [id number] [employer] Medigap Part B [id number] Self [id number] Medicare Natl Gov't Servi Medicare Primary [id number] Self [id number] [place] (pr) Medigap Part B [id number] Self Medicare [place] Primary [id number] Self UMR [facility] [id number] SP [id number] Medicare Part B [facility] Other 0 [id number] Self 0 [employer] PPO S [id number] S [id number] POMCO O [id number] S [id number] MEDICARE OUTPATIENT M [id number] S [id number] [employer] [place] Other [id number] Self [id number] SELF PAY ONLY [id number] SP [id number] UMR [facility] [id number] SP [id number] [employer] [place] Other [id number] Self [id number] Medicare Part B [facility] Other 0 [id number] Self 0 Problems, Conditions, and Diagnoses Code Display Name Description Problem Type Effective Dates Data Source(s) 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, lumbar region Other intervertebral disc displacement, lumbar region Diagnosis 12/11/2020 11:47:00 AM EDT [facility] 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, 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, lumbosacral region Diagnosis 12/11/2020 11:47:00 AM EDT [facility] 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, lumbar region Other intervertebral disc degeneration, lumbar region Diagnosis 12/11/2020 11:47:00 AM EDT [facility] C44.311 [id number] Basal cell carcinoma of nasal tip Problem 03/15/2020 12:00:00 AM EDT eCW1 ([facility]) Surgeries/Procedures Procedure Description Date Indications Data Source(s) OFFICE OUTPATIENT NEW 30 MINUTES 04/24/2021 12:00:00 A M EST MED[facility] ([facility], [facility]) OFFICE OUTPATIENT VISIT 25 MINUTES 03/20/2021 12:00:00 AM EDT MEDFER[facility]O ([facility], ) OFFICE OUTPATIENT NEW 45 MINUTES 02/14/2021 12:00:00 A M EDT MED[facility] ([facility], ) Shave Biopsy Of Skin, Single Lesion 01/08/2021 12:00:0 0 AM EDT [facility] ([facility]) OFFICE OUTPATIENT VISIT 25 MINUTES 01/08/2021 12:00:00 AM EDT [facility] ([facility]) PHYSICIAN TELEPHONE EVALUATION 21-30 MIN 12/14/2020 12 :00:00 AM EDT [facility] ([facility] ) X-Ray Spine Lumbosacral Complete Inc Bending Views Min Of 6 12/05/2020 12:00:00 AM EDT [facility] ([facility]) OFFICE OUTPATIENT VISIT 25 MINUTES 12/05/2020 12:00:00 AM EDT [facility] ([facility]) THERAPEUTIC PROPHYLACTIC/DX INJECTION SUBQ/IM 11/07/19 21 12:00:00 AM EDT [facility] ([facility]) OFFICE OUTPATIENT VISIT 15 MINUTES 11/06/2020 12:00:00 AM EDT [facility] ([facility]) Intermediate Eye Exam Established Patient Intermediate Eye Exam Established Patient 07/04/2020 12:00:00 AM EST MARY (Rylan ayesha Louis MD [facility]) ARTHROCENTESIS ASPIR&/INJECTION MAJOR JT/BURSA 12:00:00 AM EST [facility] ([facility] ) Results ID Date Data Source [id number] 04/24/2021 12:00:00 AM EST [facility] Name Value Range Interpretation Code Description Data Lubna rce(s) Supporting Document(s) SARS-CoV2 Rapid Antigen Negative [facility] This lab was ordered by [facility] and reported by [facility]. ID Date Data Source [id number] 01/08/2021 11:03:00 AM EDT [facility] ([facility]) Name Value Range Interpretation Code Description Data Lubna rce(s) Supporting Document(s) Laboratory test finding (navigational concept) Laboratory test result [facility] ([facility]) ID Date Data Source [id number] 12/24/2020 10:10:09 PM EDT [facility] Name Value Range Interpretation Code Description Data Lubna rce(s) Supporting Document(s) Progress Note [facility] [id number] lbm [file] [id number] ID Date Data Source [id number] 12/13/2020 07:54:00 [place] [address] PHONE: [phone] FAX: [phone] Name .................. : RADHA Bunn Acct Number.................. : [id number] ROOM. ................. : MR Number ................... : [id number] Stay type ............. : O/P Discharge Date......... ... : 12/11/20 Admit Date ......... : 12/11/20 Admit Phys .................... : ZACK GUTHRIE Date of ....... : 1935 Family Phys ................... : SUKHDEV SANTI Phone .................. : [phone] Age ................................ : 85 Film# .................. .:[id number] Sex ................................. : F Unsigned transcriptions are preliminary reports and do not represent a medical or legal document MRI LUMBAR SPINE W/O CONTRAST [id number] COMPLETE:12/11/20 13:03 STEVE 51682 Reason for Exam: DISC DEGENERATION MRI LUMBAR SPINE WITHOUT CONTRAST, 12/11/20: FINDINGS: Marked degenerative spondylosis is seen. Vertebral disc space narrowings noted at L1-L2 through L5- S1, most notably at L5-S1. Modic type degenerative changes are noted of vertebral body endplates of L1-L2, L2-L3, L3-L4, and L4-L5. Distal spinal cord pathology not seen. L5-S1, spondylosis and broad-based disc protrusions noted, which resulted in marked lateral recess narrowings and moderate neuroforaminal narrowings. L4-L5, degenerative spondylosis and broad-based disc protrusions are noted. Inferior to the disc protrusion left of the midline, there is an inferior disc extrusion that has sagittal height of 0.9 cm, transverse diameter of 0.9 cm, and AP diameter of 0.5 cm. Mild central canal stenosis, marked lateral recess narrowings, and moderate neuroforaminal narrowings are present at the level of the intervertebral disc space. Inferior to the L4-L5 intervertebral disc space, there is right lateral recess narrowing without ce ntral canal stenosis or left lateral recess narrowing seen due to inferior disc extrusion. L3-L4, spondylosis and broad-based disc protrusion seen with mild central canal stenosis, marked lateral recess narrowings, and mild neuroforaminal narrowings. L2-L3, spondylosis and disc bulging with mild lateral recess narrowings and mild neuroforaminal narrowings. L1-L2, spondylosis and disc protrusion with mild left lateral recess narrowings, moderate right lateral narrowings, and marked right neuroforaminal narrowings. T12-L1 and T11-T12, intervertebral disc spaces unremarkable. Page 1 of 2 [facility] [address] [place] [address] PHONE: [phone] FAX: [phone] Name .................. : RADHA Bunn Acct Number.................. : [id number] ROOM. ................. : Number ................... : [id number] Stay type ............. : O/P Discharge Date......... ... : 12/11/20 Admit Date ......... : 12/11/20 Admit Phys .................... : ZACK MAMI Date of ....... : 1935 Family Phys ................... : SUKHDEV SANTI Phone .................. : [phone] Age ................................ : 85 Film# .................. .:[id number] Sex ................................. : F Unsigned transcriptions are preliminary reports and do not represent a medical or legal document MRI LUMBAR SPINE W/O CONTRAST [id number] COMPLETE:12/11/20 13:03 STEVE [id number] Reason for Exam: DISC DEGENERATION IMPRESSION: Severe degenerative spondylosis. Disc protrusion and right-sided inferior disc extrusion L4-L5. See above. Broad-based disc protrusions and degenerative spondylosis L1-L2, L3-L4, and L5-S1. Spondylosis and disc bulging L2-L3. See above. Distal spinal cord pathology not seen. Electronically Reviewed and Signed By Rico Au MD , 12/13/20 07:54, KGG Transcribe Initials: SSR, Transcribe Date: 12/12/20 12:34, Dictation Date: Copy for: ZACK MAMI PUGA via fax Copy for: [facility] Page 2 of 2 Name Value Range Interpretation Code Description Data Lubna rce(s) Supporting Document(s) ID Date Data Source [id number] 11/01/2020 09:41:00 AM EDT [facility] ([facility]) Name Value Range Interpretation Code Description Data Lubna rce(s) Supporting Document(s) Parathyrin.intact [Mass/volume] in Serum or Plasma 62.5 pg/mL 18.5-88 .0 [facility] ([facility]) Calcium [Moles/volume] in Serum or Plasma 10.0 mg/dL 8.8-10.2 [facility] ([facility]) ID Date Data Source [id number] 06/05/2020 12:00:00 AM EST [facility] Name Value Range Interpretation Code Description Data Lubna rce(s) Supporting Document(s) SARS-CoV-2 (COVID-19) RNA [Presence] in Respiratory specimen by ISABEL with probe detection Not Detected [facility] This lab was ordered by [facility] and reported by [employer] ID Date Data Source [id number] 05/01/2020 09:32:00 AM EST [facility] ([facility]) Name Value Range Interpretation Code Description Data Lubna rce(s) Supporting Document(s) Calcium [Mass/volume] in Serum or Plasma 10.9 mg/dL 8.8-10.2 [facility] ([facility]) Calcidiol [Mass/volume] in Serum or Plasma 64.9 ng/mL 30.0-100.0 [facility] ([facility]) Parathyrin.intact [Mass/volume] in Serum or Plasma 34.2 pg/mL 18.5-88 .0 [facility] ([facility]) Procedure Social History Code Duration Value Status Description Data Source(s ) Smoking 04/01/2021 07:52:12 AM EDT Ex-smoker (finding) complet ed Ex-smoker (finding) MARY (Km Louis MD [facility]) Alcohol intake 12/22/2020 12:00:00 AM EDT Current drinker of al cohol (finding) completed Current drinker of alcohol (finding) [facility] Tobacco use and exposure 12/22/2020 12:00:00 AM EDT Never used co mpleted Never used [facility] Cigarette pack-years 12/22/2020 12:00:00 AM EDT UNK completed [facility] Cigarettes smoked current (pack per day) - Reported 12/23/19 12:00:00 AM EDT UNK completed [facility] Smoking 12/22/2020 12:00:00 AM EDT Former smoker completed Former smoker [facility] Smoking 11/06/2020 12:00:00 AM EDT Patient is a former smoker completed Patient is a former smoker [facility] Vital Signs ID Date Data Source UNK Name Value Range Interpretation Code Description Data Source(s) Body height 63.5 [in_i] 63.5 [in_i] [facility] ([facility], ) 5'3.50" Body weight 125.00 [lb_av] 125.00 [lb_av] [facility] Body mass index (BMI) [Ratio] 21.8 kg/m2 21.8 k g/m2 [facility] ([facility]) [place] body weight 115 [lb_av] 115 [lb_av] [facility] ([facility]) Body weight 56.700 kg 56.700 kg [facility] ([facility]) Body surface area Derived from formula 1.59 m2 1.59 m2 [facility] [facility] ([facility]) Systolic blood pressure 136 mm[Hg] 136 mm[Hg] M EDENT ([facility], [facility]) Diastolic blood pressure 92 mm[Hg] 92 mm[Hg] MEDENT ([facility], [facility]) Heart rate 98 /min 98 /min MEDENT ([facility], [facility]) Respiratory rate 20 /min 20 /min [facility] ( [facility], [facility]) Oxygen saturation in Arterial blood by Pulse oximetry 99 % 99 % [facility] ([facility], [facility]) Body temperature 99.6 [degF] 99.6 [degF] [facility], [facility]) Body weight 125.00 [lb_av] 125.00 [lb_av] MEDEN T ([facility]) Body height 63 [in_i] 63 [in_i] [facility] ([facility]) 5'3" Body mass index (BMI) [Ratio] 22.1 kg/m2 22.1 k g/m2 [facility] ([facility]) [place] body weight 115 [lb_av] 115 [lb_av] MEDEN T ([facility]) Body surface area Derived from formula 1.59 m2 1.59 m2 [facility] ([facility]) Body weight 56.700 kg 56.700 kg [facility] ([facility]) Body height 63.5 [in_i] 63.5 [in_i] [facility] ([facility]) 5'3.50" Body weight 125.00 [lb_av] 125.00 [lb_av] MEDEN T ([facility]) Body mass index (BMI) [Ratio] 21.8 kg/m2 21.8 k g/m2 [facility] ([facility]) Body weight 55.339 kg 55.339 kg [facility] ([facility]) Body weight 122.00 [lb_av] 122.00 [lb_av] MEDEN T ([facility]) Systolic blood pressure 114 mm[Hg] 114 mm[Hg] M EDENT ([facility]) Diastolic blood pressure 72 mm[Hg] 72 mm[Hg] MEDENT ([facility]) Respiratory rate 14 /min 14 /min MEDENT ( [facility]) Heart rate 66 /min 66 /min MEDENT ([facility]) Body temperature 96.0 [degF] 96.0 [degF] MEDENT ([facility] ) Body mass index (BMI) [Ratio] 22.0 kg/m2 22.0 k g/m2 MED[facility] ([facility] ) Body height 63 [in_i] 63 [in_i] MEDENT ([facility]) 5'3" Body weight 124.25 [lb_av] 124.25 [lb_av] MEDEN T ([facility]) Systolic blood pressure 122 mm[Hg] 122 mm[Hg] M EDENT ([facility] ) Diastolic blood pressure 80 mm[Hg] 80 mm[Hg] MEDENT ([facility] ) Heart rate 76 /min 76 /min MED[facility] ([facility] ) Body temperature 97.0 [degF] 97.0 [degF] MEDENT ([facility] ) Body weight 127.00 [lb_av] 127.00 [lb_av] MEDEN T ([facility] ) Body mass index (BMI) [Ratio] 23.2 kg/m2 23.2 k g/m2 MED[facility] ([facility] ) Body height 62.1 [in_i] 62.1 [in_i] MEDENT ([facility] ) 5'2.10" Oxygen saturation in Arterial blood by Pulse oximetry 97 % 97 % MEDENT ([facility] ) Systolic blood pressure 124 mm[Hg] 124 mm[Hg] M EDENT ([facility]) Diastolic blood pressure 64 mm[Hg] 64 mm[Hg] MEDENT ([facility] ) Heart rate 78 /min 78 /min MED[facility] ([facility]) Body temperature 96.6 [degF] 96.6 [degF] MEDENT ([facility] ) Body height 62.1 [in_i] 62.1 [in_i] MEDENT ([facility] ) 5'2.10" Body weight 131.25 [lb_av] 131.25 [lb_av] MEDEN T ([facility] ) Body mass index (BMI) [Ratio] 23.9 kg/m2 23.9 k g/m2 MEDENT ([facility] ) Oxygen saturation in Arterial blood by Pulse oximetry 98 % 98 % MEDENT ([facility]) Body mass index (BMI) [Ratio] 23.8 kg/m2 23.8 k g/m2 MEDENT ([facility] ) Body temperature 96.9 [degF] 96.9 [degF] MEDENT ([facility]) Body height 62 [in_i] 62 [in_i] MEDENT ([facility]) 5'2" Body weight 130.00 [lb_av] 130.00 [lb_av] MEDEN T ([facility]) Systolic blood pressure 138 mm[Hg] 138 mm[Hg] e CW1 ([facility]) Body weight 132 [lb_av] 132 [lb_av] eCW1 ([facility]) Body height 63 [in_i] 63 [in_i] eCW1 ([facility] Body mass index (BMI) [Ratio] 23.38 kg/m2 23.38 kg/m2 eCW1 ([facility]) Diastolic blood pressure 84 mm[Hg] 84 mm[Hg] eCW1 ([facility]) Patient Treatment Plan of Care Planned Activity Planned Date Details Description Data Source (s) gabapentin 100 MG Oral Capsule 12/05/2020 12:00:00 AM [facility] Fluticasone Propionate 50 MCG/ACT Nasal Suspension ([place] ONASE) 10/13/2020 12:00:00 AM [facility] Zolpidem tartrate 5 MG Oral Tablet 09/30/2020 12:00:00 AM [facility] Docusate Sodium [address] [facility]
--- OUTSIDE RECORDS SUMMARY | 2021-05-03 10:28 | CCD | Continuity of Care Document ---
Author Author Lilian BUCKLEY MD Organization Unknown Address [address] [address] Phone [phone] Care Team Providers Care Human Resources Associate Name Role Phone Mike Vega M.D. AUTM [phone] AUTM Unavailable Problems Description No Information Available Social History Type Date Description Comments Sex Unknown ETOH Use 1 A Week Tobacco Use Start: Unknown End: Unknown Patient is a former smoker Recreational Drug Use Denies Drug Use Allergies, Adverse Reactions, Alerts Description No Known Drug Allergies Medications Active Medications SIG Qnty Indications Ordering Provide r Date Sinus Rinse Bottle Kit Packet use once daily 3Months Usman Buckley MD 02/14/2021 Polysporin [id number]/GM Ointme nt apply ointment to each nostril three times a day for 10 days 14.200gm Usman Buckley MD 02/14/2021 Amlodipine Besylate 5mg Tablets Unknown Atorvastatin Calcium 10mg Tablets Unknown Prolia 60mg/ml Soln Prefill Syring e [id number] Unknown Vitamin D3 25mcg (1000 Ut) Capsules Unknown Calcium 600 600mg Tablets Unknown Stool Softener 100mg Tablets Unknown Aspirin 81 Low Dose 81mg Chewtabs 1 by mouth every day Unknown Metoprolol Tartrate 50mg Tablets Unknown Gabapentin 100mg Capsules Fish, Mami, P.A. Zolpidem Tartrate 5mg Tablets Mike Vega M.D. Immunizations Description No Information Available Vital Signs Date Vital Result Comment 02/14/2021 10:05am Weight 122.00 lb Weight 55.339 kg Results Description No Information Available Procedures Description No Information Available Medical Devices Description No Information Available Encounters Description No Information Available Assessments Description No Information Available Plan of Treatment Future Appointment(s):* 03/20/2021 9:50 am - Usman Buckley MD at [facility] Functional Status Description No Information Available Mental Status Description No Information Available Referrals Refer to Dr Reason for Referral Status Appt Date Usman Buclkey M.D. DIZZINESS & GIDDINESS Scheduled [address] [place], [place] [id number] [phone] Jim Velasquez M.D. MELENA Created [facility] [address] [place] [address], [address] [id number] [phone]
--- OUTSIDE RECORDS SUMMARY | 2021-05-03 10:28 | CCD | Continuity of Care Document ---
Author Author Lilian BUCKLEY MD Organization Unknown Address [address] [address] Phone [phone] Care Team Providers Care Drill Rig Operator Helper Name Role Phone Mike eVga M.D. AUTM [phone] AUTM Unavailable Problems Description No Information Available [...] daily 3Months Usman Buckley MD 02/14/2021 Polysporin [id number]/GM Ointme nt apply ointment to each nostril three times a day for 10 days 14.200gm Usman Buckley MD 02/14/2021 Amlodipine Besylate 5mg Tablets Unknown Atorvastatin Calcium 10mg Tablets Unknown Prolia 60mg/ml Soln Prefill Syring e [id number] Unknown Vitamin D3 25mcg (1000 Ut) Capsules [...] Available Procedures Date Code Description Status 02/14/2021 89681 Office/Outpatient New Moderate M DM 45-59 Minutes Completed Medical Devices Description No Information Available Encounters Type Date Location Provider Dx Diagnosis Office Visit 02/14/2021 10:10a [facility] Usman Buckley MD J31.0 Chronic rhinitis Assessments Date Code Description Provider 02/14/2021 J31.0 Chronic rhinitis Usman Buckley MD Plan of Treatment Future Appointment(s):* 03/20/2021 9:50 am - Usman Buckley MD at [facility] 02/14/2021 - Usman Buckley MD* J31.0 Chronic rhinitis * All * New Medication:* Sinus Rinse Bottle Kit - use once daily * Polysporin [id number] Unit/GM - apply ointment to each nostril three times a day for 10 days Functional Status Description No Information Available Mental Status Description No Information Available Referrals Refer to Dr Reason for Referral Status Appt Date Usman Buckley M.D. DIZZINESS & GIDDINESS Closed [address] [place] [address] [address] [place] [address] [phone] Jim Velasquez M.D. MELENA Created [facility] [address] [place] [address], [address] [place] [address] [phone]
--- OUTSIDE RECORDS SUMMARY | 2021-05-03 11:22 | CCD ---
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 Name Role Phone [facility], PA-C Unavailable Unavailabl e Fish, [facility], PA-C Un[facility] Un[facility] Un[facility] Un[facility] Unavailable Unavailabl e Fish, [facility], PA-C Unavailable Unavailabl e Fish, [facility], PA-C Unavailable Unavailabl e Fish, [facility], PA-C Unavailable Unavailabl e Fish, [facility], PA-C Unavailable Unavailabl e Fish, [facility], PA-C Unavailable Unavailabl e Fish, [facility], PA-C Unavailable Unavailabl e Fish, [facility], PA-C Unavailable Unavailabl e Fish, [facility], PA-C Unavailable Unavailabl e Fish, [facility], PA-C Unavailable Unavailabl e Fish, [facility], PA-C Unavailable Unavailabl e Fish, [facility], PA-C Unavailable Unavailabl e Fish, [facility], PA-C Unavailable Unavailabl e Fish, [facility], PA-C Unavailable Unavailabl e Fish, [facility], PA-C Unavailable Unavailabl e Fish, [facility], PA-C Unavailable Unavailabl e Fish, [facility], PA-C Unavailable Unavailabl e Fish, [facility], PA-C Unavailable Unavailabl e Fish, [facility], PA-C Unavailable Unavailabl e Fish, [facility], PA-C Unavailable Unavailabl e Fish, [facility], PA-C Unavailable Unavailabl e Fish, [facility], PA-C Unavailable Unavailabl e Fish, [facility], PA-C Unavailable Unavailabl e Fish, [facility], PA-C Unavailable Unavailabl e Fish, [facility], PA-C Unavailable Unavailabl e Fish, [facility], PA-C Unavailable Unavailabl e Fish, [facility], PA-C Unavailable Unavailabl e Fish, [facility], PA-C Unavailable Unavailabl e Fish, [facility], PA-C Unavailable Unavailabl e Fish, [facility], PA-C Unavailable Unavailabl e Fish, [facility], PA-C Unavailable Unavailabl e LETTIERE, A NATHALIA [...] LETTIERE, A NATHALIA PA Unavailable Unavailable Fish, [facility], PA-C Unavailable Unavailabl e Fish, [facility], PA-C Unavailable Unavailabl e Fish, [facility], PA-C Unavailable Unavailabl e Fish, [facility], PA-C Unavailable Unavailabl e Fish, [facility], PA-C Unavailable Unavailabl e Fish, [facility], PA-C Unavailable Unavailabl e Fish, [facility], PA-C Unavailable Unavailabl e Fish, [facility], PA-C Unavailable Unavailabl e Fish, [facility], PA-C Unavailable Unavailabl e Fish, [facility], PA-C Unavailable Unavailabl e Fish, [facility], PA-C Unavailable Unavailabl e Fish, [facility], PA-C Unavailable Unavailabl e Fish, [facility], PA-C Unavailable Unavailabl e Fish, [facility], PA-C Unavailable Unavailabl e Fish, [facility], PA-C Unavailable Unavailabl e Fish, [facility], PA-C Unavailable Unavailabl e Fish, [facility], PA-C Unavailable Unavailabl e Fish, [facility], PA-C Unavailable Unavailabl e Fish, [facility], PA-C Unavailable Unavailabl e Fish, [facility], PA-C Unavailable Unavailabl e Fish, [facility], PA-C Unavailable Unavailabl e Fish, [facility], PA-C Unavailable Unavailabl e Fish, [facility], PA-C Unavailable Unavailabl e Fish, [facility], PA-C Unavailable Unavailabl e Fish, [facility], PA-C Unavailable Unavailabl e Fish, [facility], PA-C Unavailable Unavailabl e Fish, [facility], PA-C Unavailable Unavailabl e Fish, [facility], PA-C Unavailable Unavailabl e Fish, [facility], PA-C Unavailable Unavailabl e Fish, [facility], PA-C Unavailable Unavailabl e Fish, [facility], PA-C Unavailable Unavailabl e Fish, [facility], PA-C Unavailable Unavailabl e Fish, [facility], PA-C Unavailable Unavailabl e Fish, [facility], PA-C Unavailable Unavailabl e Fish, [facility], PA-C Unavailable Unavailabl e Fish, [facility], PA-C Unavailable Unavailabl e Polk CityUsman MD Unavailable Unavailable [place] City[facility] MD Unavailable Unavailable [place] MD Unavailable Unavailable [place] MD Unavailable Unavailable [place] MD Unavailable Unavailable [place] MD Unavailable Unavailable [place] MD Unavailable Unavailable [place] MD Unavailable Unavailable [place] MD Unavailable Unavailable [place] MD Unavailable Unavailable [place] MD Unavailable Unavailable [place] MD Unavailable Unavailable [place] MD Unavailable Unavailable [place] MD Unavailable Unavailable [place] MD Unavailable Unavailable [place] MD Unavailable Unavailable [place] MD Unavailable Unavailable [place] MD Unavailable Unavailable [place]Us[place] MD Unavailable Unavailable [place] MD Unavailable Unavailable [place] MD Unavailable Unavailable [place] MD Unavailable Unavailable [place] MD Unavailable Unavailable [place] MD Unavailable Unavailable [place] MD Unavailable Unavailable [place] MD Unavailable Unavailable [place] MD Unavailable Unavailable [place] MD Unavailable Unavailable [place] MD Unavailable Unavailable [place] MD Unavailable Unavailable [place] MD Unavailable Unavailable Lorin Dover MD Unavailable [...] Unavailable Dykes, C Dann MD Unavailable Unavailable [place], Zahra MANAGER HOME IMPROVEMENT Unavailable Unavailable [place], Zahra MANAGER HOME IMPROVEMENT Unavailable Unavailable [place], Zahra MANAGER HOME IMPROVEMENT Unavailable Unavailable [place], Zahra MANAGER HOME IMPROVEMENT Unavailable Unavailable [place], Zahra MANAGER HOME IMPROVEMENT Unavailable Unavailable [place], Zahra MANAGER HOME IMPROVEMENT Unavailable Unavailable [place], Zahra MANAGER HOME IMPROVEMENT Unavailable Unavailable [place], Zahra MANAGER HOME IMPROVEMENT Unavailable Unavailable [place], Zahra MANAGER HOME IMPROVEMENT Unavailable Unavailable [place], Zahra MANAGER HOME IMPROVEMENT Unavailable Unavailable [place], Zahra MANAGER HOME IMPROVEMENT Unavailable Unavailable [place], Zahra MANAGER HOME IMPROVEMENT Unavailable Unavailable [place], Zahra MANAGER HOME IMPROVEMENT Unavailable Unavailable [place], Zahra MANAGER HOME IMPROVEMENT Unavailable Unavailable [place], Zahra MANAGER HOME IMPROVEMENT Unavailable Unavailable [place], Zahra MANAGER HOME IMPROVEMENT Unavailable Unavailable [place], Zahra MANAGER HOME IMPROVEMENT Unavailable Unavailable [place], Zahra MANAGER HOME IMPROVEMENT Unavailable Unavailable [place], Zahra MANAGER HOME IMPROVEMENT Unavailable Unavailable [place], Zahra MANAGER HOME IMPROVEMENT Unavailable Unavailable [place], Zahra MANAGER HOME IMPROVEMENT Unavailable Unavailable [place], Zahra MANAGER HOME IMPROVEMENT Unavailable Unavailable [place], Zahra MANAGER HOME IMPROVEMENT Unavailable Unavailable [place], Zahra MANAGER HOME IMPROVEMENT Unavailable Unavailable [place], Zahra MANAGER HOME IMPROVEMENT Unavailable Unavailable [place], Zahra MANAGER HOME IMPROVEMENT Unavailable Unavailable [place], Zahra MANAGER HOME IMPROVEMENT Unavailable Unavailable [place], Zahra MANAGER HOME IMPROVEMENT Unavailable Unavailable [place], Zahra MANAGER HOME IMPROVEMENT Unavailable Unavailable [place], Zahra MANAGER HOME IMPROVEMENT Unavailable Unavailable [place], Zahra MANAGER HOME IMPROVEMENT Unavailable Unavailable [place], Zahra MANAGER HOME IMPROVEMENT Unavailable Unavailable [place], Zahra MANAGER HOME IMPROVEMENT Unavailable Unavailable [place], Zahra MANAGER HOME IMPROVEMENT Unavailable Unavailable [place], Zahra MANAGER HOME IMPROVEMENT Unavailable Unavailable [place], Zahra MANAGER HOME IMPROVEMENT Unavailable Unavailable Pk Dixon MD Unavailable Unavailable [...] Louis, Irena Barbour MD, FACS Unavailable Unavailable Hgigins Heriberto, Irena Barbour MD, FACS Unavailable Unavailable Higgins Louis, Irena Barboru MD, FACS Unavailable Unavailable Higgins Louis, Irena [...] protected by Article 27-F of the [facility] Public Health law. If you continue you may have access to information: Regarding HIV / AIDS; Provided by facilities licensed or operated by the [facility] Office of Mental Health; or Provided by the [facility] Office for People With Developmental Disabilities. If such information is present, then the following [facility] mandated warning applies: This information has been [...] law may result in a fine or senior living sentence or both. A general authorization for the release of medical or other information is NOT sufficient authorization for further disc losure. Allergies and Adverse Reactions Type Description Substance Reaction Status Data Source(s ) Propensity to adverse reactions NO KNOWN ALLERGIES NO KNOWN ALLERGIES [facility] Allergy to substance No Known Allergies No known allergies (situation ) MARY (Km Louis MD [facility]) Family History Family Member Name Family Member Gender Family Member Status Date o f Status Description Data Source(s) Unknown Unknown Problem MEDENT ([facility]) Unknown Unknown Problem MEDENT ([facility], [facility]) Unknown Female Problem MEDENT ([facility]) Unknown Female Problem MEDENT ([facility]) Unknown Female Problem MEDENT ([facility]) Encounters Encounter Providers Location Date Indications Data Source(s ) Outpatient Attender: NATHALIA tapia 04/24/2021 09:00:00 AM EST MEDENT ([facility], [facility]) Outpatient Attender: Usman Rooney/Marcio/Jesus/Reind l 03/20/2021 09:50:00 AM EDT [facility] ([facility] Outpatient Attender: Usman Rooney/Marcio/Jesus/Reind l 02/14/2021 10:10:00 AM EDT MED[facility] ([facility]) Outpatient Attender: Catarina Skaggs [facility] Main Office 01/08/2021 10:15:00 AM EDT MEDENT ([facility]) Outpatient Attender: Dann Dover MD [id number] 2020 12:00:00 AM EDT - 12/29/2020 12:11:34 PM [facility] Outpatient Attender: Dann Dover MD 12/22/2020 12:00:00 A M [facility] Office Visit Attender: Mami LUDWIG PA-C Physical Therapy 12/14/2020 04:20:00 PM EDT MEDENT ([facility]) Outpatient Attender: YOHANA Layneonsultant: BANDAR WANG MD 12/11/2020 11:47:00 AM EDT - 12/11/2020 12:47:00 PM EDT [facility] Outpatient Attender: Mami LUDWIG PA-C Physical Therapy 12/05/2020 02:00:00 PM EDT MEDENT ([facility]) OFFICE OUTPATIENT VISIT 15 MINUTES Attender: Melany Dixon MD Phy sical Therapy 11/06/2020 01:30:00 PM EDT MED[facility] ([facility]) <td ID="encounterTypeDescriptionID1">6 M ont Follow-Up</td><td>Km Louis MD, FACS</td><td>Km Tellez MD [facility]</td><td>07/04/2020</td><td>9:10AM</td><td>10:28AM</td><td><content ID="encounterDiagnosisID1-0">History of Nicotine Dependence</content>, <content ID="encounterDiagnosisID1-1">Essential Hypertension</content>, <content ID="encounterDiagnosisID1-2">Cataract Senile Cortical</content>, <content ID="encounterDiagnosisID1-3">Cataract Senile Nuclear</content>, <content ID="encounterDiagnosisID1-4">Macular Degeneration Nonexudative Bilateral Early Dry Stage</content></td>Outpatient Attender: Km Louis MD, FACS Km Tellez MD [facility] 07/04/2020 09:10:00 AM EST - 07/04/2020 10:28:00 AM ES T Macular Degeneration Nonexudative Bilateral Early Dry StageEssential HypertensionCataract Senile CorticalHistory of Nicotine DependenceCataract Senile Nuclear MARY (Km Louis MD [facility]) Macular Degeneration Nonexudative Bilate ral Early Dry Stage Essential Hypertension Cataract Senile Cortical History of Nicotine Dependence Cataract Senile Nuclear Outpatient<td ID="encounterTypeDescripti onID0">6 Month follow up with testing</td><td></td><td>Km Tellez MD [facility]</td><td>01/12/2021</td><td>07/04/2020 8:30AM</td><td>9:38AM</td><td></td> Km Tellez MD [facility] 07/04/2020 08:30:00 AM EST - 01/12/2021 09:38:00 AM EDT MARY (Km Louis MD [facility]) [place] [address] [address] 03/21/2020 12:00:00 AM EDT eCW1 ([facility]) ([facility]) [place] [address] [address] [address] 03/15/2020 12:00:00 AM EDT eCW1 ([facility]) Immunizations Vaccine Date Status Description Data Source(s) COVID-19 VACCINE Moderna 08/02/2020 12:00:00 AM EST completed [facility] Vaccine Series Complete: YESThis Data wa s Submitted to [facility] Via [employer]. COVID-19 VACCINE, MRNA-1273, LNP-S (MODERNA)/PF 08/02/2020 1 2:00:00 AM EST completed [facility] COVID-19 VACCINE Moderna 07/03/2020 12:00:00 AM EST completed [facility] Vaccine Series Complete: NOThis Data was Submitted to [facility] Via [employer]. COVID-19 VACCINE, MRNA-1273, LNP-S (MODERNA)/PF 07/03/2020 1 2:00:00 AM EST completed [facility] INFLUENZA VIRUS VACCINE QUADRIVAL SPLIT 2019-(65 YR UP)/PF 03/15/2020 12:00:00 AM EDT completed [facility] Medications Medication Brand Name Start Date Product Form Dose Route Admi nistrative Instructions Pharmacy Instructions Status Indications Reaction Description Data Source(s) Ipratropium [place] Ipratropium [place] 04/30/2021 12:00:00 AM EST active MEDENT ([facility], ) 42 mcg (0.06 %) 04/30/2021 [...] Amoxicillin 04/24/2021 12:00:00 AM EST active [facility] Prednisone 10 MG Oral Tablet Prednisone 04/24/2021 12:00:00 AM EST active MEDENT ([facility]) 10 mg 04/24/2021 12:00:00 AM EST [...] Kit 02/14/2021 12:00:00 AM EDT active MEDENT ([facility], ) SOD CHLOR,BICARB/SQUEEZ BOTTLE 02/14/2021 12:00: 00 AM EDT packet with rinse device 50 USE DIRECTED ONCE DAILY USE DIRECTE D ONCE DAILY SOLD: 02/23/2021 [facility] Bacitracin 0.5 UNT/MG / Polymyxin B 10 UNT/MG Topical Ointment [Polysporin] Polysporin 02/14/2021 12:00:00 AM EDT active MEDENT ([facility], ) Bacitracin 0.5 UNT/MG / Polymyxin B [...] MOUTH EVERY OTHER DAY SOLD: 12/07/2020 [facility] atorvastatin 10 MG Oral Tablet ATORVASTATIN CALCIUM 12/06/2020 1 2:00:00 AM EDT tablet 45 TAKE ONE TABLET BY MOUTH EVERY O THER DAY TAKE ONE TABLET BY MOUTH EVERY OTHER DAY SOLD: 03/16/2021 [facility] gabapentin 100 MG Oral Capsule Gabapentin 100 MG Oral Capsule (NEURONTIN) Gabapentin 100 MG Oral Capsule (NEURONTIN) 12/05/2020 12:00:00 AM EDT 200 mg active 200 mg [facility] 4 mg 12/05/2020 12:00:00 AM EDT tablets,dose [...] THREE TIMES A DAY NEEDED SOLD: 12/05/2020 [facility] gabapentin 100 MG Oral Capsule Gabapentin 12/05/2020 12:00:00 AM EDT active MEDENT ([facility] Methylprednisolone 4 MG Oral Tablet [Medrol] Medrol 10/2020 12:00:00 AM EDT active MEDENT ( [facility] Prolia [facility]#[id number] (60mg Syringe) 1MG 11/06/2020 12:00:00 AM EDT completed [facility] ([facility]) Medication administered onsite Fluticasone Propionate 50 MCG/ACT Nasal Suspension (FLONASE) 2512-3547-16 10/13/2020 12:00:00 AM EDT active SPRAY 1 SPRAY IN EACH NOSTRIL ONCE A DAY [facility] 50 mcg/actuation 10/13/2020 12:00:00 AM EDT spray,suspension [...] DAY AT BEDTIME MAXIMUM DAILY DOSE 1 [facility] 5 mg 09/30/2020 12:00:00 AM EDT tablet [...] 7 DAYS SOLD: 05/05/2020 [facility] Prolia [facility]#[id number] (60mg Syringe) 1MG 05/04/2020 12:00:00 AM EST completed [facility] Medication administered onsite Clobetasol Propionate 0.5 MG/ML [...] (Stool Softener) aborted 1 capsule as needed [facility] Insurance Providers Payer name Policy type / Coverage type Policy ID Covered alliance party ID Covered alliance party's relationship to hewitt Policy [place] Plan Information [employer] [id number] SP [id number] [employer] [id number] SP [id number] MEDICARE A [id number] Self [id number] A MEDICARE [id number] SP [id number] A [id number] A [place] Primary [id number] Self [id number] MEDICARE A [id number] Self [id number] MEDICARE [id number] SP [id number] A MEDICARE [id number] SP [id number] [employer] U [id number] Self [id number] UMR U [id number] Self [id number] [facility] [id number] SP [id number] Umr (pr) [facility] Part B [id number] Self [id number] Medicare [place] Primary [id number] Self [id number] MEDICARE [id number] SP [id number] MEDICARE [id number] SP [id number] A Umr (pr) [facility] Part B [id number] Self [id number] Medicare [place] Medicare Primary [id number] Self [id number] Umr Commercial [id number] Self [id number] [facility] [id number] SP [id number] [employer] [id number] SP [id number] Medicare [place] Medicare Primary [id number] Self [id number] [employer] (pr) Medigap Part B [id number] Self [id number] [employer] PPO O [id number] S [id number] MEDICARE C [id number] S [id number] A MEDICARE PART A -O/P [id number] 18 [id number] UMR -O/P [id number] 18 [id number] Medicare [place] Medicare Primary [id number] Self [id number] [employer] Medigap Part B [id number] Self [id number] Medicare Natl Gov't Servi Medicare Primary [id number] Self [id number] [employer] (pr) Medigap Part B [id number] Self Medicare [place] Primary [id number] Self [facility] [id number] SP [id number] Medicare Part B [facility] Other 0 [id number] Self [id number] [employer] PPO S [id number] S [id number] [employer] O [id number] S [id number] MEDICARE OUTPATIENT M [id number] S [id number] [employer] [place] Other [id number] Self [id number] SELF PAY ONLY [id number] SP [id number] [facility] [id number] SP [id number] [employer] [place] Other [id number] Self [id number] Medicare Part B [facility] Other 0 [id number] Self 0 Problems, Conditions, and Diagnoses Code Display Name Description Problem Type Effective Dates Data Source(s) 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, lumbar region Other intervertebral disc displacement, lumbar region Diagnosis 12/11/2020 11:47:00 AM EDT [facility] 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, 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, lumbosacral region Diagnosis 12/11/2020 11:47:00 AM EDT [facility] 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, lumbar region Other intervertebral disc degeneration, lumbar region Diagnosis 12/11/2020 11:47:00 AM EDT [facility] C44.311 [id number] Basal cell carcinoma of nasal tip Problem 03/15/2020 12:00:00 AM EDT eC1 ([facility]) Surgeries/Procedures Procedure Description Date Indications Data Source(s) OFFICE OUTPATIENT NEW 30 MINUTES 04/24/2021 12:00:00 A M EST MEDENT ([facility], [facility]) OFFICE OUTPATIENT VISIT 25 MINUTES 03/20/2021 12:00:00 AM EDT MEDENT ([facility], ) OFFICE OUTPATIENT NEW 45 MINUTES 02/14/2021 12:00:00 A M EDT MEDENT ([facility], ) Shave Biopsy Of Skin, Single Lesion 01/08/2021 12:00:0 0 AM EDT MEDENT ([facility]) OFFICE OUTPATIENT VISIT 25 MINUTES 01/08/2021 12:00:00 AM EDT MEDFERNANDO ([facility]) PHYSICIAN TELEPHONE EVALUATION 21-30 MIN 12/14/2020 12 :00:00 AM EDT MEDFERNANDO ([facility] X-Ray Spine Lumbosacral Complete Inc Bending Views Min Of 6 12/05/2020 12:00:00 AM EDT MED[facility] ([facility]) OFFICE OUTPATIENT VISIT 25 MINUTES 12/05/2020 12:00:00 AM EDT MED[facility] ([facility]) THERAPEUTIC PROPHYLACTIC/DX INJECTION SUBQ/IM 11/07/19 21 12:00:00 AM EDT MED[facility] ([facility]) OFFICE OUTPATIENT VISIT 15 MINUTES 11/06/2020 12:00:00 AM EDT MEDENT ([facility]) Intermediate Eye Exam Established Patient Intermediate Eye Exam Established Patient 07/04/2020 12:00:00 AM EST MARY (Rylan ayesha Louis MD [facility]) ARTHROCENTESIS ASPIR&/INJECTION MAJOR JT/BURSA 12:00:00 AM EST MEDENT ([facility] ) Results ID Date Data Source [id number] 04/24/2021 12:00:00 AM EST [facility] Name Value Range Interpretation Code Description Data Lubna rce(s) Supporting Document(s) SARS-CoV2 Rapid Antigen [facility] This lab was ordered by [facility] and reported by [facility]. ID Date Data Source [id number] 01/08/2021 11:03:00 AM EDT MEDENT ([facility]) Name Value Range Interpretation Code Description Data Lubna rce(s) Supporting Document(s) Laboratory test finding (navigational concept) Laboratory test result MEDENT ([facility]) ID Date Data Source [id number] 12/24/2020 10:10:[address] [facility] Name Value Range Interpretation Code Description Data Lubna rce(s) Supporting Document(s) Progress Note [facility] [id number] lbm [file] ICAgICAgICAgICAgICAgICAgICAgICAgICAgICAgIC AgICAgICAgICAgICAgICAgICANCiAgICAgICAgICAgICAgICAgICAgICAgICAgICAgICAgICAgICAgIC AgICAgICAgICAgICAgICAgICAgICAgICAgICAgICAgICAgICAgICAgICAgICAgICAgICAgICAgICAgIC ANCiAgICAgICAgICAgICAgICAgICAgICAgICAgICAg ICAgICAgICAgICAgICAgICAgICAgICAgICAgICAgICAgICAgICAgICAgICAgICAgICAgICAgICAgICAg ICAgICAgICAgICANCiAgICAgICAgICAgICAgICAgICAgICAgICAgICAgICAgICAgICAgICAgICAgICAg ICAgICAgICAgICAgICAgICAgICAgICAgICAgICAgIC AgICAgICAgICAgICAgICAgICAgICANCiAgICAgICAgICAgICAgICAgICAgICAgICAgICAgICAgICAgIC AgICAgICAgICAgICAgICAgICAgICAgICAgICAgICAgICAgICAgICAgICAgICAgICAgICAgICAgICAgIC AgICANCiAgICAgICAgICAgICAgICAgICAgICAgICAg ICAgICAgICAgICAgICAgICAgICAgICAgICAgICAgICAgICAgICAgICAgICAgICAgICAgICAgICAgICAg ICAgICAgICAgICAgICANCiAgICAgICAgICAgICAgICAgICAgICAgICAgICAgICAgICAgICAgICAgICAg ICAgICAgICAgICAgICAgICAgICAgICAgICAgICAgIC AgICAgICAgICAgICAgICAgICAgICAgICANCiAgICAgICAgICAgICAgICAgICAgICAgICAgICAgICAgIC AgICAgICAgICAgICAgICAgICAgICAgICAgICAgICAgICAgICAgICAgICAgICAgICAgICAgICAgICAgIC AgICAgICANCiAgICAgICAgICAgICAgICAgICAgICAg ICAgICAgICAgICAgICAgICAgICAgICAgICAgICAgICAgICAgICAgICAgICAgICAgICAgICAgICAgICAg ICAgICAgICAgICAgICAgICANCiAgICAgICAgICAgICAgICAgICAgICAgICAgICAgICAgICAgICAgICAg ICAgICAgICAgICAgICAgICAgICAgICAgICAgICAgIC AgICAgICAgICAgICAgICAgICAgICAgICAgICANCjw/bEXxY1btaAOqtvI2I5duJn1VDo1IWY5qt3IyUA KbZJfbjdTbPplSRiJiNYFxYklDPzg1CZzkFN6EiLUzS9YhM0HyQEpbIF6DPDHxQFDtvAGaZUAbEEXbBl Q2SKCwFFbiDF0FmTJqUZfhDASoTHTxEtJgSLAhIVIt UDMaWVNtVXYDPGGtLYItAoXdXJgpPV7Xx6EkuGM3NUb+Xi9WRC8gp8LiDKxkUDZnVD2feg1MQGwMRxVz D4AnbaT6CPK7LRXjWp3CSBQsHZSxgZEgMDFiVFMDZbAxS3JnbR90AEFPMs5+QQpyysGlOwdGGfD0JPTr z3WwOVd0TI3SILGbHSa0cUUpQTTaT0Sov5UiWa18YW IjVlbcIKQ7yMsdxmHVDBKjv7jvDW7NRRB4NEmvYnKmShCeSHAxQOb9GPTUXLuLVoGiB4Qnn8NpAgY5RG ZnIaVwWOypEIQnXeW5XB01mVjvFL5DNNCmOGIhYP44TUZ7MBQfAb8VHm9PUdRdZQ3amn0FRZQeYNAiLh eGUnq4NBegCK2JqKYbZ1AfcVQzd8dSPuCjH6DWQEM9 MCUhIo6XJHBlVlZfAPQwZQikNC0jUMVaMTMEnQmeskR7YM3QJZ1wboNeYF2DMrApJu2jMt1PPtVwS8Uk K6UpQXZrKQJIMBjvVR2AACuqHJ1wDN2Vh0RKmNBudL0ogg3MBAIjPVGsShqxws3VTgfrT4V7cHttWCKg TzokRJXFRNtaRR9HAREwMOK4VQCvStUdRDZAAcHiG0 5hEU1CU8Quf99xJhH8GWVhXyJeOUzzDB75nTkdccRkqRXigWglBD2WYc6+DQplbmRvYmoNCnhyZWYNCj QyHBDTXkQeEDMqLNFkBAVmFyU8WaBaMg7HVLQiJYGbVSRwEbJsYXIgLTZdVHgnXFXeERD4MVErYWOsEC VgZN1TPqRvPBMpPluhMGRjNSHyKRGiui3MTRDmTOKr PVO1JvAiZHZmFDYlNIqdBSDoPYGkBxD6SSNbLUCrOS3KEeBbZOLwFEO0QZotCEBaMGAvjv9DGEIbBFMl ElL7NPHlGGElMYSkMMrtFCVwDVD5Zzt3GBCuWZQaJG8EGuBcSGLtWJYkMOJhIKOtVLXsjs0FPTUgURLy BCB5FPZoJYPbMYIxNXzhFSCsPXBjRgo5FXSeDRAkSB 6DWgHxXRMwOVI7EDYeBEOmKXRgcj9AAZXjSYVzRAV1XsMwJPPcOPCwZNlqKOKxCNL0JnbgNFLbNGCcWU 3BGvSqPIWqSHQ9EdVqPNOdEHFlgd8EAGFtDCObMUqrUZMjDSFwRJPmUSprRAHdOIV5PGRuQSYhCELfVV 3HArJzCCNzYFqlCeVrLFWqVESvep9EKGBnMBEsOdE8 WhIkHYHqIVBmRImmMVDgEJE2ZCAxSLBpRIXkMV5ZWqMhQYByNql5QBKkVIJbYWYjwq3CFCItDHTrLHTy SjQnVBFtYLJbWQkcMWNpCAN4LYH1XBHnCKKqGT4VEvXdBAArApg0RiIkDFCuDJAtlh9MOFYoQFBoIViq VKXaJUEaZAMgDCdzVQHdTOJyMoL4NEPiRMEnLZ2QHd YePBImOkD4GXPlWLNfAYPffu2OMCTpLDHiWOQyZJZhSRKfFYPiYCrdQRNuWTY3PRo4KJQvTDJqNN2HUe IbCYZqWwGhNDwpHUReABUnup2JSVWnMETdBmOjNFZqRGOuQCSkSXszUTMwHYD8EjjwBEMcQKVuNH6FYi RiSFTpAcI3DfEaBKBhVDBkzw5BGQFlTCZuHgKvPWNb QHGsFJEbKRnxFOOiUMY4Ovp2DBUkTRRmSA5SPjWkLPAcZmt3RsUiBDNyHESmqw3PFEHjBBLnAkd4FOEe TSGzWFXcEPxvQZUjDPA1GPA2SASoRTFzTS5HLiYpKBDgApg9JADkDKIpJIDyfz2ZDCLeTMCgIHF2DWYy CKPeFLHzXJk5nnOrkMTdAJy9WQ7QJ3BisnLkYPONUb 1Rx481GVMnYLFbLn8GJ7nmUh6hJJLdXEIJNu8EDIj8UpPcUjVbM4P7VxR3ApYjRhRdPnddLCTrJMs2G7 I4ODA+THajZqUfEzZaMZfjMVz8HKBhSfWhRZS3T3K0FEKiNqh9PI6vZCZIZd7+DQpzdGFydHhyZWYNCj B5KHm5RPecHZNRQj4T ID Date Data Source [id number] 12/13/2020 07:54:00 [place] [address] PHONE: [phone] FAX: [phone] Name .................. : RADHA Bunn Acct Number.................. : [id number] ROOM. ................. : MR Number ................... : [id number] Stay type ............. : O/P Discharge Date......... ... : 12/11/20 Admit Date ......... : 12/11/20 Admit Phys .................... : ZACK GUTHRIE Date of ....... : 1935 Family Phys ................... : SUKHDEV SANTI Phone .................. : [phone] Age ................................ : 85 Film# .................. .:[id number] Sex ................................. : F Unsigned transcriptions are preliminary reports and do not represent a medical or legal document MRI LUMBAR SPINE W/O CONTRAST [id number] COMPLETE:12/11/20 13:03 STEVE [id number] Reason for Exam: DISC DEGENERATION MRI LUMBAR [...] disc spaces unremarkable. Page [address] [facility] [address] [place] [address] PHONE: [phone] FAX: [phone] Name .................. : RADHA Bunn Acct Number.................. : [id number] ROOM. ................. : Number ................... : [id number] Stay type ............. : O/P Discharge Date......... ... : 12/11/20 Admit Date ......... : 12/11/20 Admit Phys .................... : ZACK MAMI Date of ....... : 1935 Family Phys ................... : DOMINGOJOSE RAUL SANTI Phone .................. : [phone] Age ................................ : 85 Film# .................. .:[id number] Sex ................................. : F Unsigned transcriptions are preliminary reports and do not represent a medical or legal document MRI LUMBAR SPINE W/O CONTRAST [id number] COMPLETE:12/11/20 13:03 STEVE [id number] Reason for Exam: DISC DEGENERATION IMPRESSION: Severe degenerative spondylosis. Disc protrusion and right-sided inferior disc extrusion L4-L5. See above. Broad-based disc protrusions and degenerative spondylosis L1-L2, L3-L4, and L5-S1. Spondylosis and disc bulging L2-L3. See above. Distal spinal cord pathology not seen. Electronically Reviewed and Signed By Rico Au MD , 12/13/20 07:54, KGG Transcribe Initials: MELODY, Transcribe Date: 12/12/20 12:34, Dictation Date: Copy for: ZACK PUGA via fax Copy for: [facility] REC Page 2 of 2 Name Value Range Interpretation Code Description Data Lubna rce(s) Supporting Document(s) ID Date Data Source [id number] 11/01/2020 09:41:00 AM EDT [facility] ([facility]) Name Value Range Interpretation Code Description Data Lubna rce(s) Supporting Document(s) Parathyrin.intact [Mass/volume] in Serum or Plasma 62.5 pg/mL 18.5-88 .0 [facility] ([facility]) Calcium [Moles/volume] in Serum or Plasma 10.0 mg/dL 8.8-10.2 [facility] ([facility]) ID Date Data Source [id number] 06/05/2020 12:00:00 AM EST [facility] Name Value Range Interpretation Code Description Data Lubna rce(s) Supporting Document(s) SARS-CoV-2 (COVID-19) RNA [Presence] in Respiratory specimen by ISABEL with probe detection Not Detected [facility] This lab was ordered by [facility] and reported by [employer] ID Date Data Source [id number] 05/01/2020 09:32:00 AM EST [facility] ([facility]) Name Value Range Interpretation Code Description Data Lubna rce(s) Supporting Document(s) Calcium [Mass/volume] in Serum or Plasma 10.9 mg/dL 8.8-10.2 [facility] ([facility]) Calcidiol [Mass/volume] in Serum or Plasma 64.9 ng/mL 30.0-100.0 [facility] ([facility]) Parathyrin.intact [Mass/volume] in Serum or Plasma 34.2 pg/mL 18.5-88 .0 [facility] ([facility]) Procedure Social History Code Duration Value Status Description Data Source(s ) Smoking 04/01/2021 07:52:12 AM EDT Ex-smoker (finding) complet ed Ex-smoker (finding) [facility] ([facility]) Alcohol intake 12/22/2020 12:00:00 AM EDT Current drinker of al cohol (finding) completed Current drinker of alcohol (finding) [facility] Tobacco use and exposure 12/22/2020 12:00:00 AM EDT Never used co mpleted Never used [facility] Cigarette pack-years 12/22/2020 12:00:00 AM EDT UNK completed [facility] Cigarettes smoked current (pack per day) - Reported 12/23/19 12:00:00 AM EDT UNK completed [facility] Smoking 12/22/2020 12:00:00 AM EDT Former smoker completed Former smoker [facility] Smoking 11/06/2020 12:00:00 AM EDT Patient is a former smoker completed Patient is a former smoker [facility] ([facility]) Vital Signs ID Date Data Source UNK Name Value Range Interpretation Code Description Data Source(s) Body height 63.5 [in_i] 63.5 [in_i] [facility] ([facility], ) 5'3.50" Body weight 125.00 [lb_av] 125.00 [lb_av] [facility] Body mass index (BMI) [Ratio] 21.8 kg/m2 21.8 k g/m2 [facility] ([facility]) [place] body weight 115 [lb_av] 115 [lb_av] [facility] ) Body weight 56.700 kg 56.700 kg [facility] ([facility]) Body surface area Derived from formula 1.59 m2 1.59 m2 [facility] ([facility]) Systolic blood pressure 136 mm[Hg] 136 mm[Hg] [facility] ([facility], [facility]) Diastolic blood pressure 92 mm[Hg] 92 mm[Hg] [facility] ([facility], [facility]) Heart rate 98 /min 98 /min [facility] ([facility], [facility]) Respiratory rate 20 /min 20 /min [facility] ( [facility], [facility]) Oxygen saturation in Arterial blood by Pulse oximetry 99 % 99 % [facility] ([facility], [facility]) Body temperature 99.6 [degF] 99.6 [degF] [facility] ([facility], [facility]) Body weight 125.00 [lb_av] 125.00 [lb_av] [facility] T ([facility], [facility]) Body height 63 [in_i] 63 [in_i] [facility] 5'3" Body mass index (BMI) [Ratio] 22.1 kg/m2 22.1 k g/m2 [facility] ([facility], [facility]) Body height 63.5 [in_i] 63.5 [in_i] [facility] ([facility]) 5'3.50" Body weight 125.00 [lb_av] 125.00 [lb_av] [facility] ([facility]) Body mass index (BMI) [Ratio] 21.8 kg/m2 21.8 k g/m2 [facility] ([facility]) [place] body weight 115 [lb_av] 115 [lb_av] [facility] ([facility]) Body weight 56.700 kg 56.700 kg [facility] ([facility]) Body surface area Derived from formula 1.59 m2 1.59 m2 [facility] ([facility]) Body weight 55.339 kg 55.339 kg [facility] ([facility]) Body weight 122.00 [lb_av] 122.00 [lb_av] [facility] T ([facility]) Systolic blood pressure 114 mm[Hg] 114 mm[Hg] [facility] ([facility]) Diastolic blood pressure 72 mm[Hg] 72 mm[Hg] [facility] ([facility]) Respiratory rate 14 /min 14 /min [facility] ( [facility]) Heart rate 66 /min 66 /min [facility] ([facility]) Body temperature 96.0 [degF] 96.0 [degF] [facility] ([facility]) Body height 63 [in_i] 63 [in_i] [facility] ([facility]) 5'3" Body weight 124.25 [lb_av] 124.25 [lb_av] [facility] T ([facility]) Body mass index (BMI) [Ratio] 22.0 kg/m2 22.0 k g/m2 [facility] ([facility]) Body height 62.1 [in_i] 62.1 [in_i] [facility] ([facility] 5'2.10" Systolic blood pressure 122 mm[Hg] 122 mm[Hg] [facility] ([facility]) Diastolic blood pressure 80 mm[Hg] 80 mm[Hg] [facility] ([facility] Heart rate 76 /min 76 /min [facility] ([facility]) Body temperature 97.0 [degF] 97.0 [degF] [facility] ([facility]) Body weight 127.00 [lb_av] 127.00 [lb_av] [facility] T ([facility] Body mass index (BMI) [Ratio] 23.2 kg/m2 23.2 k g/m2 [facility] ([facility] Oxygen saturation in Arterial blood by Pulse oximetry 97 % 97 % [facility] ([facility]) Systolic blood pressure 124 mm[Hg] 124 mm[Hg] [facility] ([facility]) Diastolic blood pressure 64 mm[Hg] 64 mm[Hg] [facility] ([facility]) Heart rate 78 /min 78 /min [facility] ([facility]) Body temperature 96.6 [degF] 96.6 [degF] [facility] ([facility]) Body height 62.1 [in_i] 62.1 [in_i] [facility] ([facility] 5'2.10" Body weight 131.25 [lb_av] 131.25 [lb_av] [facility] T ([facility] ) Body mass index (BMI) [Ratio] 23.9 kg/m2 23.9 k g/m2 [facility] ([facility] ) Oxygen saturation in Arterial blood by Pulse oximetry 98 % 98 % [facility] ([facility] ) Body mass index (BMI) [Ratio] 23.8 kg/m2 23.8 k g/m2 [facility] ([facility] ) Body temperature 96.9 [degF] 96.9 [degF] [facility] ([facility] Body height 62 [in_i] 62 [in_i] [facility] ([facility]) 5'2" Body weight 130.00 [lb_av] 130.00 [lb_av] [facility] T ([facility] Body weight 132 [lb_av] 132 [lb_av] [facility]1 ([facility]) Body height 63 [in_i] 63 [in_i] [facility] ([facility]) Body mass index (BMI) [Ratio] 23.38 kg/m2 23.38 kg/m2 [facility] ([facility]) Systolic blood pressure 138 mm[Hg] 138 mm[Hg] e CW1 ([facility]) Diastolic blood pressure 84 mm[Hg] 84 mm[Hg] [facility]1 ([facility]) Patient Treatment Plan of Care Planned Activity Planned Date Details Description Data Source (s) gabapentin 100 MG Oral Capsule 12/05/2020 12:00:00 AM [facility] Fluticasone Propionate 50 MCG/ACT Nasal Suspension ([place] ONASE) 10/13/2020 12:00:00 AM [facility] Zolpidem tartrate 5 MG Oral Tablet 09/30/2020 12:00:00 AM [facility] Docusate Sodium 100 MG Oral Capsule [facility]
--- NOTE | 2021-05-03 11:27 | REP ---
INDICATION: Syncope/near-syncope. COMPARISON: 05/21/2014 a frontal view TECHNIQUE: Portable FINDINGS: The technique utilized in obtaining the radiograph has magnified the cardiac silhouette and accentuated the interstitial markings. The cardiomediastinal silhouette is stable. The heart is not enlarged. The lung hairston are stable. No acute patchy parenchymal opacities or pleural effusions have developed. There is no significant change in the appearance of the imaged osseous structures. IMPRESSION: There is no evidence of acute cardiopulmonary disease or significant change compared to the prior exam. <Electronically signed by John Oconnor > 05/03/21 1123
--- NOTE | 2021-05-03 11:30 | REP ---
INDICATION: Syncope. COMPARISON: None. TECHNIQUE: CT brain performed in the axial plane. Coronal reconstruction images are performed. FINDINGS: There is moderate atrophy. There is no midline shift or mass effect. Subtle ill-defined hypodensity in the periventricular white matter bilaterally suggests mild small vessel ischemic changes. There is no acute intracranial hemorrhage or extra-axial fluid collection. There are vascular calcifications in the carotid siphons. There is moderate mucosal thickening in the ethmoid and maxillary sinuses, with mild mucosal thickening in the sphenoid sinuses. IMPRESSION: Chronic atrophy and mild small vessel ischemic change. No acute intracranial hemorrhage, midline shift or mass effect. Chronic sinusitis. <Electronically signed by Cruz Cote > 05/03/21 [id number]
--- NOTE | 2021-05-03 11:36 | REP ---
INDICATION: Syncope. COMPARISON: None. TECHNIQUE: CT cervical spine performed in the axial plane, with sagittal and coronal reconstruction images performed. FINDINGS: There is no acute compression fracture or malalignment. There is no prevertebral soft tissue swelling. There is moderate diffuse spurring. There is mild disc space narrowing at C4-5 and C5-6 with moderate narrowing at C6-7. There is diffuse sclerosis, spurring and narrowing at the posterior facet joints. There is slight reversal of the normal cervical lordosis. There is no abnormal density in the spinal canal. IMPRESSION: No evidence of acute fracture or dislocation.Moderate degenerative changes. <Electronically signed by Cruz Cote > 05/03/21 [id number]
[2021-05-03 11:40] LABS: BASO % 0.2 % (0.0-1.0); EOS % 0.2 % (0.0-3.0); HEMATOCRIT 45.1 % (36.0-47.0); HEMOGLOBIN 14.9 g/dl (12.0-15.5); LYMPH # 1.1 10^3/uL (1.5-5.0); LYMPH % 8.9 % (24.0-44.0); MEAN CORPUSCULAR HEMOGLOBIN 29.6 pg (27.0-33.0); MEAN CORPUSCULAR VOLUME 89.5 fl (80.0-96.0); MONO % 7.8 % (2.0-8.0); NEUTROPHILS % 82.1 % (36.0-66.0); PLATELET COUNT, AUTOMATED 241 10^3/uL (150-450); RED BLOOD COUNT 5.04 10^6/uL (4.00-5.40); WHITE BLOOD COUNT 12.2 10^3/uL (4.0-10.0)
[2021-05-03 12:21] LABS: BLOOD UREA NITROGEN 18 MG/DL (7-18); CALCIUM LEVEL 10.8 MG/DL (8.8-10.2); CARBON DIOXIDE LEVEL 28 MEQ/L (21-32); CHLORIDE LEVEL 105 MEQ/L (98-107); CREATININE FOR GFR 0.87 MG/DL (0.55-1.30); FREE T4 1.43 NG/DL (0.76-1.46); GLOMERULAR FILTRATION RATE > 60.0 (>32); GLUCOSE, FASTING 134 MG/DL (70-100); MAGNESIUM LEVEL 2.2 MG/DL (1.8-2.4); POTASSIUM SERUM 4.4 MEQ/L (3.5-5.1); SODIUM LEVEL 140 MEQ/L (136-145); THYROID STIMULATING HORMONE 0.591 uIU/ML (0.358-3.740)
[2021-05-03] MEDS ORDERED: LIDOCAINE 5% (LIDODERM) PATCH TD ONE (12:25)
[2021-05-03 12:29] LABS: RSV AMPLIFICATION NEGATIVE (NEGATIVE)
--- NOTE | 2021-05-03 13:23 | REP ---
INDICATION: pain, s/p fall likely arthritic but eval for fx COMPARISON: None. TECHNIQUE: Three views bilateral shoulders. FINDINGS: There is no acute fracture or dislocation bilaterally. On the right there is mild narrowing and spurring at the glenohumeral and acromioclavicular joints. Mild tendinous and or bursal calcifications are seen along the superolateral humeral head. Multiple metallic clips are seen in the right axilla. On the left there is mild joint space narrowing and spurring at the glenohumeral and acromioclavicular joints. There are heavy tendinous and or bursal calcifications along the lateral humeral head. Multiple metallic clips overlie the left hilar region and axilla. IMPRESSION: No fracture or dislocation. Bilateral degenerative changes. Bilateral calcific tendinitis or bursitis. <Electronically signed by Cruz Cote > 05/03/21 [id number]
[2021-05-03] MEDS ORDERED: cefTRIAXone SOD 1 GM in D5W MINI-BAG PLUS 50 ML IV ONE (14:50)
[2021-05-03] MEDS ORDERED: NS 1,000 ML IV ONE (14:50)
[2021-05-03] MEDS ORDERED: CEPH500C PO (14:56)
[2021-05-03] MEDS ORDERED: LIDO5DIS41 TOP (14:56)
[2021-05-03 17:45] VITALS: BP 148/73
--- NOTE | 2021-05-03 20:31 | ECGEPIP ---
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
== END 2021-05-03 18:15 | disposition home or self-care (01) ==
LOC: M ED 10:14
DX: I95.1 Orthostatic hypotension (principal); N39.0 Urinary tract infection, site not specified; E86.0 Dehydration; R42 Dizziness and giddiness; M75.31 Calcific tendinitis of right shoulder; M75.32 Calcific tendinitis of left shoulder; M48.02 Spinal stenosis, cervical region; M50.30 Other cervical disc degeneration, unspecified cervical region; G31.9 Degenerative disease of nervous system, unspecified; J32.9 Chronic sinusitis, unspecified; E11.9 Type 2 diabetes mellitus without complications; I10 Essential (primary) hypertension; Z85.3 Personal history of malignant neoplasm of breast; M19.90 Unspecified osteoarthritis, unspecified site; Z88.8 Allergy status to other drugs, medicaments and biological substances; Z79.899 Other long term (current) drug therapy
CPT/HCPCS: 70450; 71045; 72125; 73030; 80048; 81001; 83735; 84439; 84443; 84484; 85025; 87631; 93005; 93041; 94760; 96365; 96366; 99285; J0696

== ENCOUNTER → 2021-05-18 | Outpatient (CLI) | payer MEDICARE, OTHER ==
[~2021-05-18] MED LIST changes: +AMOX875T; +CEPH500C PO; +IPRA6SP; +LIDO5DIS41 TOP; +MUCI1TAB18
[2021-05-18 17:32] LABS: CALCIUM LEVEL 11.2 MG/DL (8.8-10.2)
[2021-05-18 17:45] LABS: TOTAL 25(OH) VITAMIN D 94.2 NG/ML (30.0-100.0)
== END ==
LOC: M PLALAB 14:49
PROVIDERS: ATTEND Internal Medicine Endocrinology, Diabetes & Metabolism
DX: M81.0 Age-related osteoporosis without current pathological fracture (principal)

== ENCOUNTER → 2021-08-20 | Outpatient (CLI) | payer MEDICARE, OTHER ==
[2021-08-20 13:52] LABS: PHOSPHORUS LEVEL 3.5 MG/DL (2.5-4.9)
[2021-08-20 14:03] LABS: PTH INTACT 25.8 PG/ML (18.5-88.0); TOTAL 25(OH) VITAMIN D 58.2 NG/ML (30.0-100.0)
== END ==
LOC: M PLALAB 11:42
PROVIDERS: ATTEND Internal Medicine Endocrinology, Diabetes & Metabolism
DX: E55.9 Vitamin D deficiency, unspecified (principal); Z79.899 Other long term (current) drug therapy

== ENCOUNTER → 2021-10-15 | Outpatient (CLI) | payer MEDICARE, OTHER ==
[2021-10-15 16:55] LABS: BASO % 0.3 % (0.0-1.0); EOS # 0.1 10^3/uL (0.0-0.5); EOS % 0.8 % (0.0-3.0); HEMOGLOBIN 14.2 g/dl (12.0-15.5); LYMPH # 2.6 10^3/uL (1.5-5.0); MEAN CORPUSCULAR HEMOGLOBIN 29.6 pg (27.0-33.0); MEAN CORPUSCULAR VOLUME 89.6 fl (80.0-96.0); MONO # 0.7 10^3/uL (0.0-0.8); MONO % 9.6 % (2.0-8.0); PLATELET COUNT, AUTOMATED 212 10^3/uL (150-450); WHITE BLOOD COUNT 7.3 10^3/uL (4.0-10.0)
[2021-10-15 17:27] LABS: ALBUMIN 3.9 GM/DL (3.2-5.2); ALT/SGPT 28 U/L (12-78); BILIRUBIN,TOTAL 0.5 MG/DL (0.2-1.0); BLOOD UREA NITROGEN 15 MG/DL (7-18); CALCIUM LEVEL 10.3 MG/DL (8.8-10.2); CARBON DIOXIDE LEVEL 30 MEQ/L (21-32); CHLORIDE LEVEL 106 MEQ/L (98-107); CREATININE FOR GFR 0.73 MG/DL (0.55-1.30); GLOMERULAR FILTRATION RATE > 60.0 (>32); GLUCOSE, FASTING 60 MG/DL (70-100); POTASSIUM SERUM 4.3 MEQ/L (3.5-5.1); SODIUM LEVEL 141 MEQ/L (136-145); TOTAL PROTEIN 6.9 GM/DL (6.4-8.2)
== END ==
LOC: M PLALAB 13:04
PROVIDERS: ATTEND Family Medicine
DX: R55 Syncope and collapse (principal); E07.9 Disorder of thyroid, unspecified

== ENCOUNTER → 2021-10-24 | Outpatient (CLI) | payer MEDICARE, OTHER | LOC: M EKG 09:54 | PROVIDERS: ATTEND Family Medicine | DX: R55 Syncope and collapse (principal) ==

== ENCOUNTER → 2021-11-20 | Outpatient (CLI) | payer MEDICARE, OTHER | LOC: M PLALAB 10:48 | PROVIDERS: ATTEND Internal Medicine Endocrinology, Diabetes & Metabolism | DX: M81.0 Age-related osteoporosis without current pathological fracture (principal) ==

== ENCOUNTER → 2022-01-21 | Outpatient (CLI) | payer MEDICARE, OTHER ==
[~2022-01-21] MED LIST changes: +AMLO25TA PO; +BREAST PROSTHESIS R XX; +MASTECTOMY BRA RIGHT XX
[2022-01-21 14:27] LABS: ALBUMIN 4.1 GM/DL (3.2-5.2); BLOOD UREA NITROGEN 21 MG/DL (7-18); CALCIUM LEVEL 10.4 MG/DL (8.8-10.2); CARBON DIOXIDE LEVEL 29 MEQ/L (21-32); CHLORIDE LEVEL 104 MEQ/L (98-107); CREATININE FOR GFR 0.93 MG/DL (0.55-1.30); GLOMERULAR FILTRATION RATE > 60.0 (>32); GLUCOSE, FASTING 84 MG/DL (70-100); NT-PRO BNP 143 PG/ML (<450); PHOSPHORUS LEVEL 2.9 MG/DL (2.5-4.9); POTASSIUM SERUM 4.2 MEQ/L (3.5-5.1); SODIUM LEVEL 138 MEQ/L (136-145)
== END ==
LOC: M PLALAB 08:52
PROVIDERS: ATTEND Internal Medicine Cardiovascular Disease
DX: R06.02 Shortness of breath (principal); I10 Essential (primary) hypertension; R94.31 Abnormal electrocardiogram [ECG] [EKG]

== ENCOUNTER → 2022-02-07 | Outpatient (CLI) | payer MEDICARE, OTHER ==
[2022-02-07 10:25] LABS: HEMATOCRIT 45.6 % (36.0-47.0); HEMOGLOBIN 14.9 g/dl (12.0-15.5); MEAN CORPUSCULAR HEMOGLOBIN 29.2 pg (27.0-33.0); MEAN CORPUSCULAR HGB CONC 32.7 g/dl (32.0-36.5); MEAN CORPUSCULAR VOLUME 89.4 fl (80.0-96.0); PLATELET COUNT, AUTOMATED 205 10^3/uL (150-450)
[2022-02-07 11:42] LABS: ALBUMIN 3.9 GM/DL (3.2-5.2); ALT/SGPT 23 U/L (12-78); BILIRUBIN,TOTAL 0.5 MG/DL (0.2-1.0); BLOOD UREA NITROGEN 16 MG/DL (7-18); CALCIUM LEVEL 9.9 MG/DL (8.8-10.2); CARBON DIOXIDE LEVEL 30 MEQ/L (21-32); CHLORIDE LEVEL 105 MEQ/L (98-107); CHOLESTEROL LEVEL 202 MG/DL (<200); CHOLESTEROL RISK RATIO 2.589 (<5); CREATININE FOR GFR 0.79 MG/DL (0.55-1.30); GLOMERULAR FILTRATION RATE > 60.0 (>32); GLUCOSE, FASTING 86 MG/DL (70-100); HDL CHOLESTEROL 78 MG/DL (>40); LDL CHOLESTEROL 102 MG/DL (<100); NON-HDL-C 124 MG/DL; POTASSIUM SERUM 4.2 MEQ/L (3.5-5.1); SODIUM LEVEL 139 MEQ/L (136-145); TRIGLYCERIDES LEVEL 111 MG/DL (<150)
[2022-02-07 13:13] LABS: TOTAL 25(OH) VITAMIN D 53.1 NG/ML (30.0-100.0)
== END ==
LOC: M PLALAB 08:34
PROVIDERS: ATTEND Family Medicine
DX: M81.0 Age-related osteoporosis without current pathological fracture (principal); E78.00 Pure hypercholesterolemia, unspecified

== ENCOUNTER 2022-02-18 14:05 | Emergency (ER) | payer MEDICARE, OTHER ==
[~2022-02-18] VITALS: Ht 160 cm; Wt 54.5 kg
[2022-02-18 15:18] LABS: BASO % 0.3 % (0.0-1.0); EOS # 0.2 10^3/uL (0.0-0.5); HEMATOCRIT 46.9 % (36.0-47.0); HEMOGLOBIN 15.6 g/dl (12.0-15.5); LYMPH # 2.4 10^3/uL (1.5-5.0); LYMPH % 32.3 % (24.0-44.0); MEAN CORPUSCULAR HEMOGLOBIN 29.7 pg (27.0-33.0); MEAN CORPUSCULAR HGB CONC 33.3 g/dl (32.0-36.5); MEAN CORPUSCULAR VOLUME 89.2 fl (80.0-96.0); MONO # 0.7 10^3/uL (0.0-0.8); MONO % 9.8 % (2.0-8.0); NEUTROPHILS # 4.2 10^3/uL (1.5-8.5); NEUTROPHILS % 55.3 % (36.0-66.0); PLATELET COUNT, AUTOMATED 222 10^3/uL (150-450); RED BLOOD COUNT 5.26 10^6/uL (4.00-5.40); WHITE BLOOD COUNT 7.5 10^3/uL (4.0-10.0)
[2022-02-18 16:01] LABS: BLOOD UREA NITROGEN 20 MG/DL (7-18); CALCIUM LEVEL 10.3 MG/DL (8.8-10.2); CARBON DIOXIDE LEVEL 31 MEQ/L (21-32); CHLORIDE LEVEL 104 MEQ/L (98-107); CREATININE FOR GFR 0.86 MG/DL (0.55-1.30); FREE T4 1.11 NG/DL (0.76-1.46); GLOMERULAR FILTRATION RATE > 60.0 (>32); GLUCOSE, FASTING 94 MG/DL (70-100); POTASSIUM SERUM 4.2 MEQ/L (3.5-5.1); SODIUM LEVEL 137 MEQ/L (136-145)
[2022-02-18] MEDS ORDERED: APIXABAN 5 MG TAB (ELIQUIS) PO ONE (16:40)
[2022-02-18] MEDS ORDERED: DIGOXIN INJ 0.5 MG/2 ML AMP (J1160) IV ONE (16:40)
[2022-02-18] MEDS ORDERED: ELIQ5TAB PO (16:53)
[2022-02-18] MEDS ORDERED: DIGO0.123 PO (16:53)
[2022-02-18 17:48] VITALS: BP 147/77
== END 2022-02-18 17:57 | disposition home or self-care (01) ==
LOC: M ED 14:05
DX: I48.91 Unspecified atrial fibrillation (principal); E78.5 Hyperlipidemia, unspecified; I10 Essential (primary) hypertension
CPT/HCPCS: 71045; 80048; 84439; 84443; 85025; 93005; 93041; 94760; 96374; 99285; J1160

== ENCOUNTER → 2022-05-09 | Outpatient (CLI) | payer MEDICARE, OTHER ==
[~2022-05-09] MED LIST changes: +DIGO0.123 PO; +ELIQ5TAB PO
[2022-05-09 10:16] LABS: BLOOD UREA NITROGEN 18 MG/DL (9-23); CALCIUM LEVEL 10.2 MG/DL (8.3-10.6); CARBON DIOXIDE LEVEL 31 MMOL/L (20-31); CHLORIDE LEVEL 105 MMOL/L (98-107); CREATININE FOR GFR 0.86 MG/DL (0.55-1.30); GLOMERULAR FILTRATION RATE > 60.0 (>32); GLUCOSE, FASTING 99 MG/DL (74-106); POTASSIUM SERUM 4.3 MMOL/L (3.5-5.1); SODIUM LEVEL 142 MMOL/L (136-145)
== END ==
LOC: M LAB 09:09
PROVIDERS: ATTEND Internal Medicine Cardiovascular Disease
DX: I48.0 Paroxysmal atrial fibrillation (principal)

== ENCOUNTER → 2022-06-21 | Outpatient (CLI) | payer MEDICARE, OTHER ==
[2022-06-21 15:16] LABS: CALCIUM LEVEL 10.7 MG/DL (8.3-10.6)
[2022-06-21 15:22] LABS: TOTAL 25(OH) VITAMIN D 68.2 NG/ML (20.0-100.0)
== END ==
LOC: M PLALAB 09:47
PROVIDERS: ATTEND Internal Medicine Endocrinology, Diabetes & Metabolism
DX: M81.0 Age-related osteoporosis without current pathological fracture (principal)

== ENCOUNTER → 2022-11-22 | Outpatient (CLI) | payer MEDICARE, OTHER | LOC: M SLEEP 20:00 | PROVIDERS: ATTEND Nurse Practitioner Adult Health | DX: G47.30 Sleep apnea, unspecified (principal) ==

== ENCOUNTER → 2022-12-17 | Outpatient (CLI) | payer MEDICARE, OTHER ==
[2022-12-17 14:31] LABS: CALCIUM LEVEL 9.5 MG/DL (8.3-10.6)
== END ==
LOC: M PLALAB 09:20
PROVIDERS: ATTEND Internal Medicine Endocrinology, Diabetes & Metabolism
DX: M81.0 Age-related osteoporosis without current pathological fracture (principal)

== ENCOUNTER → 2023-02-17 | Outpatient (CLI) | payer MEDICARE, OTHER ==
[2023-02-17 14:56] LABS: BASO % 0.4 % (0.0-1.0); EOS # 0.1 10^3/uL (0.0-0.5); EOS % 1.3 % (0.0-3.0); HEMATOCRIT 42.7 % (36.0-47.0); LYMPH # 1.8 10^3/uL (1.5-5.0); LYMPH % 27.1 % (24.0-44.0); MEAN CORPUSCULAR HEMOGLOBIN 29.5 pg (27.0-33.0); MEAN CORPUSCULAR HGB CONC 32.8 g/dl (32.0-36.5); MEAN CORPUSCULAR VOLUME 90.1 fl (80.0-96.0); MONO # 0.6 10^3/uL (0.0-0.8); MONO % 8.7 % (2.0-8.0); NEUTROPHILS # 4.1 10^3/uL (1.5-8.5); NEUTROPHILS % 62.1 % (36.0-66.0); PLATELET COUNT, AUTOMATED 215 10^3/uL (150-450); RED BLOOD COUNT 4.74 10^6/uL (4.00-5.40); WHITE BLOOD COUNT 6.7 10^3/uL (4.0-10.0)
[2023-02-17 15:19] LABS: ALBUMIN 3.9 G/DL (3.2-5.2); ALKALINE PHOSPHATASE 94 U/L (46-116); ALT/SGPT 17 U/L (7.0-40); AST/SGOT 17 U/L (<34); BILIRUBIN,TOTAL 0.7 MG/DL (0.3-1.2); BLOOD UREA NITROGEN 19 MG/DL (9-23); CALCIUM LEVEL 9.4 MG/DL (8.3-10.6); CARBON DIOXIDE LEVEL 30 MMOL/L (20-31); CHLORIDE LEVEL 103 MMOL/L (98-107); CREATININE FOR GFR 0.75 MG/DL (0.55-1.30); GLOMERULAR FILTRATION RATE > 60.0 (>32); GLUCOSE, FASTING 143 MG/DL (74-106); POTASSIUM SERUM 4.4 MMOL/L (3.5-5.1); SODIUM LEVEL 140 MMOL/L (136-145); TOTAL PROTEIN 6.6 G/DL (5.7-8.2)
== END ==
LOC: M LAB 14:05
PROVIDERS: ATTEND Internal Medicine Cardiovascular Disease
DX: I10 Essential (primary) hypertension (principal); I48.0 Paroxysmal atrial fibrillation; E78.5 Hyperlipidemia, unspecified

== ENCOUNTER → 2023-06-25 | Outpatient (CLI) | payer MEDICARE, OTHER ==
[2023-06-25 14:39] LABS: CALCIUM LEVEL 10.5 MG/DL (8.3-10.6); PHOSPHORUS LEVEL 3.4 MG/DL (2.4-5.1)
[2023-06-25 14:42] LABS: TOTAL 25(OH) VITAMIN D 56.5 NG/ML (20.0-100.0)
== END ==
LOC: M PLALAB 09:31
PROVIDERS: ATTEND Internal Medicine Endocrinology, Diabetes & Metabolism
DX: M81.0 Age-related osteoporosis without current pathological fracture (principal); E55.9 Vitamin D deficiency, unspecified

== ENCOUNTER → 2023-08-25 | Outpatient (CLI) | payer MEDICARE, OTHER ==
[2023-08-25 11:22] LABS: BASO # 0.1 10^3/uL (0.0-0.2); BASO % 0.8 % (0.0-1.0); EOS # 0.5 10^3/uL (0.0-0.5); EOS % 7.2 % (0.0-3.0); HEMATOCRIT 43.2 % (36.0-47.0); HEMOGLOBIN 14.2 g/dl (12.0-15.5); LYMPH # 1.7 10^3/uL (1.5-5.0); LYMPH % 26.2 % (24.0-44.0); MEAN CORPUSCULAR HEMOGLOBIN 29.8 pg (27.0-33.0); MEAN CORPUSCULAR HGB CONC 32.9 g/dl (32.0-36.5); MEAN CORPUSCULAR VOLUME 90.6 fl (80.0-96.0); MONO # 0.7 10^3/uL (0.0-0.8); MONO % 10.5 % (2.0-8.0); NEUTROPHILS # 3.6 10^3/uL (1.5-8.5); PLATELET COUNT, AUTOMATED 242 10^3/uL (150-450); RED BLOOD COUNT 4.77 10^6/uL (4.00-5.40); WHITE BLOOD COUNT 6.6 10^3/uL (4.0-10.0)
[2023-08-25 11:53] LABS: ALBUMIN 4.1 G/DL (3.2-5.2); ALKALINE PHOSPHATASE 100 U/L (46-116); ALT/SGPT 17 U/L (7.0-40); AST/SGOT 16 U/L (<34); BILIRUBIN,TOTAL 0.8 MG/DL (0.3-1.2); BLOOD UREA NITROGEN 18 MG/DL (9-23); CALCIUM LEVEL 9.5 MG/DL (8.3-10.6); CARBON DIOXIDE LEVEL 30 MMOL/L (20-31); CHLORIDE LEVEL 110 MMOL/L (98-107); CHOLESTEROL LEVEL 183 MG/DL (<200); CHOLESTEROL RISK RATIO 2.87 (<5); CREATININE FOR GFR 0.75 MG/DL (0.55-1.30); GLOMERULAR FILTRATION RATE > 60.0 (>32); GLUCOSE, FASTING 89 MG/DL (74-106); HDL CHOLESTEROL 63.6 MG/DL (>40); LDL CHOLESTEROL 102.2 MG/DL (<100); NON-HDL-C 119.4 MG/DL; POTASSIUM SERUM 4.3 MMOL/L (3.5-5.1); SODIUM LEVEL 140 MMOL/L (136-145); TOTAL PROTEIN 6.7 G/DL (5.7-8.2); TRIGLYCERIDES LEVEL 86 MG/DL (<150)
[2023-08-25 11:55] LABS: TOTAL 25(OH) VITAMIN D 62.4 NG/ML (20.0-100.0)
== END ==
LOC: M PLALAB 09:07
PROVIDERS: ATTEND Family Medicine
DX: M81.0 Age-related osteoporosis without current pathological fracture (principal); I10 Essential (primary) hypertension

== ENCOUNTER → 2023-09-17 | Outpatient (REF) | payer MEDICARE, OTHER ==
[2023-09-17 17:05] LABS: APPEARANCE, URINE CLEAR (CLEAR); BACTERIA, URINE AUTO NEGATIVE (NEGATIVE); BILIRUBIN, URINE AUTO NEGATIVE (NEGATIVE); BLOOD, URINE BLOOD NEGATIVE (NEGATIVE); CALCIUM OXALATE CRYSTALS SMALL; COLOR, URINE YELLOW (YELLOW); GLUCOSE, URINE (UA) AUTO NEGATIVE (NEGATIVE); KETONE, URINE AUTO TRACE mg/dL (NEGATIVE); LEUKOCYTE ESTERASE, URINE AUTO NEGATIVE (NEGATIVE); MUCUS, URINE SMALL (NEGATIVE); NITRITE, URINE AUTO NEGATIVE (NEGATIVE); PROTEIN, URINE AUTO NEGATIVE (NEGATIVE); RBC, URINE AUTO 2 /HPF (0-3); SQUAMOUS EPITHELIAL CELL UR AU 0 /HPF (0-6); UROBILINOGEN, URINE AUTO 0.2 mg/dL (0.0-2.0); WBC, URINE AUTO 1 /HPF (0-3)
== END ==
LOC: M LAB REF 16:23
PROVIDERS: ATTEND Physician Assistant
DX: N39.0 Urinary tract infection, site not specified (principal)

== ENCOUNTER 2023-10-08 12:45 | Emergency (ER) | payer MEDICARE, OTHER ==
[~2023-10-08] VITALS: Ht 160 cm; Wt 54.5 kg
[2023-10-08 12:45] VITALS: TEMP 97.6
[2023-10-08 13:39] LABS: BASO % 0.3 % (0.0-1.0); EOS # 0.2 10^3/uL (0.0-0.5); HEMATOCRIT 42.4 % (36.0-47.0); HEMOGLOBIN 13.8 g/dl (12.0-15.5); LYMPH # 1.4 10^3/uL (1.5-5.0); LYMPH % 24.5 % (24.0-44.0); MEAN CORPUSCULAR HEMOGLOBIN 29.1 pg (27.0-33.0); MEAN CORPUSCULAR HGB CONC 32.5 g/dl (32.0-36.5); MEAN CORPUSCULAR VOLUME 89.5 fl (80.0-96.0); MONO # 0.5 10^3/uL (0.0-0.8); NEUTROPHILS # 3.6 10^3/uL (1.5-8.5); NEUTROPHILS % 61.9 % (36.0-66.0); PLATELET COUNT, AUTOMATED 217 10^3/uL (150-450); RED BLOOD COUNT 4.74 10^6/uL (4.00-5.40); WHITE BLOOD COUNT 5.8 10^3/uL (4.0-10.0)
[2023-10-08] MEDS ORDERED: amLODIPine 5 MG TAB PO ONE (13:45)
[2023-10-08 14:09] LABS: CK-MB VALUE MASS < 1.0 NG/ML (<3.6)
[2023-10-08 14:11] LABS: ALBUMIN 3.8 G/DL (3.2-5.2); ALKALINE PHOSPHATASE 90 U/L (46-116); ALT/SGPT 19 U/L (7.0-40); AST/SGOT 31 U/L (<34); BILIRUBIN,DIRECT 0.1 MG/DL (<0.4); BILIRUBIN,TOTAL 0.7 MG/DL (0.3-1.2); BLOOD UREA NITROGEN 18 MG/DL (9-23); CARBON DIOXIDE LEVEL 27 MMOL/L (20-31); CHLORIDE LEVEL 105 MMOL/L (98-107); CREATININE FOR GFR 0.69 MG/DL (0.55-1.30); GLOMERULAR FILTRATION RATE > 60.0 (>32); GLUCOSE, FASTING 83 MG/DL (74-106); POTASSIUM SERUM 4.7 MMOL/L (3.5-5.1); SODIUM LEVEL 139 MMOL/L (136-145); TOTAL PROTEIN 6.7 G/DL (5.7-8.2)
[2023-10-08 14:13] LABS: CPK CREATINE PHOSPHOKINASE 78 U/L (34-145); MB/CK RELATIVE INDEX 1.28 (< OR =4)
[2023-10-08 14:30] LABS: C REACTIVE PROTEIN QUANTITATIV < 0.40 MG/DL (<1.0); MONO SCRN NEGATIVE (NEGATIVE)
[2023-10-08 14:31] LABS: DIGOXIN LEVEL 0.4 NG/ML (0.8-2.0)
[2023-10-08 14:45] VITALS: BP 148/64; O2SAT 99
[2023-10-08 15:39] LABS: D-DIMER QUANT 0.44 ug/mL (<0.5); INR 1.06; PROTHROMBIN TIME 13.5 SECONDS (12.5-14.5)
[2023-10-08 15:40] LABS: CK-MB VALUE MASS < 1.0 NG/ML (<3.6)
[2023-10-08 15:42] LABS: CPK CREATINE PHOSPHOKINASE 65 U/L (34-145); MB/CK RELATIVE INDEX 1.53 (< OR =4)
== END 2023-10-08 17:35 | disposition home or self-care (01) ==
LOC: M ED 12:45
DX: R06.02 Shortness of breath (principal); I48.91 Unspecified atrial fibrillation; I10 Essential (primary) hypertension; Z88.8 Allergy status to other drugs, medicaments and biological substances; Z79.899 Other long term (current) drug therapy

== ENCOUNTER → 2023-12-29 | Outpatient (CLI) | payer MEDICARE, OTHER | LOC: M PLALAB 09:07 | PROVIDERS: ATTEND Nurse Practitioner Family | DX: M81.0 Age-related osteoporosis without current pathological fracture (principal) ==

== ENCOUNTER → 2024-03-17 | Outpatient (CLI) | payer MEDICARE, OTHER ==
[2024-03-17 15:21] LABS: BASO % 0.4 % (0.0-1.0); EOS # 0.3 10^3/uL (0.0-0.5); EOS % 3.7 % (0.0-3.0); HEMATOCRIT 44.7 % (36.0-47.0); HEMOGLOBIN 14.7 g/dl (12.0-15.5); LYMPH # 1.9 10^3/uL (1.5-5.0); LYMPH % 26.6 % (24.0-44.0); MEAN CORPUSCULAR HEMOGLOBIN 30.3 pg (27.0-33.0); MEAN CORPUSCULAR HGB CONC 32.9 g/dl (32.0-36.5); MEAN CORPUSCULAR VOLUME 92.2 fl (80.0-96.0); MONO # 0.7 10^3/uL (0.0-0.8); MONO % 9.5 % (2.0-8.0); NEUTROPHILS # 4.1 10^3/uL (1.5-8.5); NEUTROPHILS % 59.5 % (36.0-66.0); PLATELET COUNT, AUTOMATED 251 10^3/uL (150-450); RED BLOOD COUNT 4.85 10^6/uL (4.00-5.40)
[2024-03-17 15:48] LABS: TOTAL 25(OH) VITAMIN D 54.3 NG/ML (20.0-100.0)
[2024-03-17 15:50] LABS: ALBUMIN 4.1 G/DL (3.2-5.2); ALKALINE PHOSPHATASE 102 U/L (46-116); ALT/SGPT 19 U/L (7.0-40); AST/SGOT 17 U/L (<34); BILIRUBIN,TOTAL 0.8 MG/DL (0.3-1.2); BLOOD UREA NITROGEN 16 MG/DL (9-23); CARBON DIOXIDE LEVEL 30 MMOL/L (20-31); CHLORIDE LEVEL 107 MMOL/L (98-107); CHOLESTEROL LEVEL 206 MG/DL (<200); CHOLESTEROL RISK RATIO 3.13 (<5); CREATININE FOR GFR 0.76 MG/DL (0.55-1.30); GLOMERULAR FILTRATION RATE > 60.0 (>32); GLUCOSE, FASTING 92 MG/DL (74-106); HDL CHOLESTEROL 65.8 MG/DL (>40); LDL CHOLESTEROL 114.8 MG/DL (<100); NON-HDL-C 140.2 MG/DL; POTASSIUM SERUM 4.2 MMOL/L (3.5-5.1); SODIUM LEVEL 142 MMOL/L (136-145); TOTAL PROTEIN 7.1 G/DL (5.7-8.2); TRIGLYCERIDES LEVEL 127 MG/DL (<150)
== END ==
LOC: M PLALAB 09:58
PROVIDERS: ATTEND Family Medicine
DX: M81.0 Age-related osteoporosis without current pathological fracture (principal); E78.00 Pure hypercholesterolemia, unspecified

== ENCOUNTER → 2024-04-07 | Outpatient (CLI) | payer MEDICARE, OTHER | LOC: M EKG 15:58 | PROVIDERS: ATTEND Internal Medicine Cardiovascular Disease | DX: R42 Dizziness and giddiness (principal); I48.0 Paroxysmal atrial fibrillation ==

== ENCOUNTER → 2024-07-01 | Outpatient (CLI) | payer MEDICARE, OTHER ==
[2024-07-01 17:26] LABS: CALCIUM LEVEL 10.7 MG/DL (8.3-10.6)
== END ==
LOC: M PLALAB 13:49
PROVIDERS: ATTEND Internal Medicine Endocrinology, Diabetes & Metabolism
DX: M81.0 Age-related osteoporosis without current pathological fracture (principal); E55.9 Vitamin D deficiency, unspecified

== ENCOUNTER → 2024-08-04 | Outpatient (CLI) | payer MEDICARE, OTHER ==
[2024-08-04 14:21] LABS: HEMATOCRIT 47.6 % (36.0-47.0); HEMOGLOBIN 15.4 g/dl (12.0-15.5); MEAN CORPUSCULAR HEMOGLOBIN 29.3 pg (27.0-33.0); MEAN CORPUSCULAR HGB CONC 32.4 g/dl (32.0-36.5); MEAN CORPUSCULAR VOLUME 90.7 fl (80.0-96.0); PLATELET COUNT, AUTOMATED 256 10^3/uL (150-450); RED BLOOD COUNT 5.25 10^6/uL (4.00-5.40); WHITE BLOOD COUNT 7.5 10^3/uL (4.0-10.0)
[2024-08-04 14:26] LABS: BLOOD UREA NITROGEN 20 MG/DL (9-23); CARBON DIOXIDE LEVEL 32 MMOL/L (20-31); CHLORIDE LEVEL 104 MMOL/L (98-107); CREATININE FOR GFR 0.79 MG/DL (0.55-1.30); GLOMERULAR FILTRATION RATE > 60.0 (>32); GLUCOSE, FASTING 61 MG/DL (74-106); MAGNESIUM LEVEL 2.1 MG/DL (1.8-2.4); POTASSIUM SERUM 4.1 MMOL/L (3.5-5.1); SODIUM LEVEL 145 MMOL/L (136-145)
[2024-08-04 14:28] LABS: THYROID STIMULATING HORMONE 2.544 uIU/ML (0.55-4.78)
== END ==
LOC: M PLALAB 10:16
PROVIDERS: ATTEND Physician Assistant
DX: I48.0 Paroxysmal atrial fibrillation (principal)

== ENCOUNTER → 2024-08-04 | Outpatient (CLI) | payer MEDICARE, OTHER | LOC: M EKG 13:30 | PROVIDERS: ATTEND Physician Assistant | DX: Z53.21 Procedure and treatment not carried out due to patient leaving prior to being seen by health care provider (principal) ==

== ENCOUNTER → 2024-10-12 | Outpatient (CLI) | payer MEDICARE, OTHER | LOC: M PLAIMG 13:36 | PROVIDERS: ATTEND Physician Assistant | DX: R42 Dizziness and giddiness (principal); I48.0 Paroxysmal atrial fibrillation ==

== ENCOUNTER → 2024-12-20 | Outpatient (CLI) | payer MEDICARE, OTHER ==
[~2024-12-20] MED LIST changes: +LIDO1ADH93 TOP; -LIDO5DIS41 TOP
[2024-12-20 11:03] LABS: BASO # 0.0 10^3/uL (0.0-0.2); BASO % 0.6 % (0.0-1.0); EOS # 0.2 10^3/uL (0.0-0.5); EOS % 3.2 % (0.0-3.0); LYMPH # 1.9 10^3/uL (1.5-5.0); LYMPH % 35.4 % (24.0-44.0); MONO # 0.5 10^3/uL (0.0-0.8); MONO % 9.7 % (2.0-8.0); NEUTROPHILS # 2.7 10^3/uL (1.5-8.5); NEUTROPHILS % 50.9 % (36.0-66.0); PLATELET COUNT, AUTOMATED 219 10^3/uL (150-450)
[2024-12-20 11:18] LABS: APPEARANCE, URINE CLEAR (CLEAR); BACTERIA, URINE AUTO NEGATIVE (NEGATIVE); BILIRUBIN, URINE AUTO NEGATIVE (NEGATIVE); BLOOD, URINE BLOOD NEGATIVE (NEGATIVE); GLUCOSE, URINE (UA) AUTO NEGATIVE (NEGATIVE); KETONE, URINE AUTO NEGATIVE (NEGATIVE); LEUKOCYTE ESTERASE, URINE AUTO NEGATIVE (NEGATIVE); NITRITE, URINE AUTO NEGATIVE (NEGATIVE); PROTEIN, URINE AUTO NEGATIVE (NEGATIVE); RBC, URINE AUTO 2 /HPF (0-3); SPECIFIC GRAVITY URINE AUTO 1.016 (1.002-1.035); SQUAMOUS EPITHELIAL CELL UR AU 1 /HPF (0-6); UROBILINOGEN, URINE AUTO 0.2 mg/dL (0.0-2.0); WBC, URINE AUTO 0 /HPF (0-3)
[2024-12-20 11:29] LABS: ALT/SGPT 38.0 U/L (7.0-40); AST/SGOT 31.0 U/L (<34); CALCIUM LEVEL 9.5 MG/DL (8.3-10.6); CARBON DIOXIDE LEVEL 29.0 MMOL/L (20-31); CHLORIDE LEVEL 103.0 MMOL/L (98-107); CREATININE FOR GFR 0.97 MG/DL (0.55-1.30); GLOMERULAR FILTRATION RATE 56.6 (>32); POTASSIUM SERUM 4.2 MMOL/L (3.5-5.1); SODIUM LEVEL 146.0 MMOL/L (136-145)
== END ==
LOC: M PLALAB 08:52
PROVIDERS: ATTEND Family Medicine
DX: R42 Dizziness and giddiness (principal); E07.9 Disorder of thyroid, unspecified

== ENCOUNTER → 2025-02-02 | Outpatient (CLI) | payer MEDICARE, OTHER ==
[2025-02-02 15:38] LABS: CALCIUM LEVEL 10.4 MG/DL (8.3-10.6); CARBON DIOXIDE LEVEL 30.0 MMOL/L (20-31); CHLORIDE LEVEL 103.0 MMOL/L (98-107); CREATININE FOR GFR 0.89 MG/DL (0.55-1.30); GLOMERULAR FILTRATION RATE 62.7 (>32); POTASSIUM SERUM 4.1 MMOL/L (3.5-5.1); SODIUM LEVEL 143.0 MMOL/L (136-145)
== END ==
LOC: M PLALAB 12:01
PROVIDERS: ATTEND Nurse Practitioner Family
DX: M81.0 Age-related osteoporosis without current pathological fracture (principal)

== ENCOUNTER → 2025-03-16 | Outpatient (CLI) | payer MEDICARE, OTHER ==
[~2025-03-16] MED LIST changes: +ASPI81TA26 PO; +CHLO125TA; +CLOP75TA2; +SPIR-10
[2025-03-16 13:44] LABS: BASO # 0.0 10^3/uL (0.0-0.2); BASO % 0.7 % (0.0-1.0); EOS # 0.2 10^3/uL (0.0-0.5); EOS % 3.4 % (0.0-3.0); LYMPH # 1.4 10^3/uL (1.5-5.0); LYMPH % 25.6 % (24.0-44.0); MONO # 0.6 10^3/uL (0.0-0.8); MONO % 10.1 % (2.0-8.0); NEUTROPHILS # 3.3 10^3/uL (1.5-8.5); NEUTROPHILS % 60.0 % (36.0-66.0); PLATELET COUNT, AUTOMATED 239 10^3/uL (150-450)
[2025-03-16 13:45] LABS: ALT/SGPT 24.0 U/L (7.0-40); AST/SGOT 27.0 U/L (<34); CALCIUM LEVEL 9.6 MG/DL (8.3-10.6); CARBON DIOXIDE LEVEL 32.0 MMOL/L (20-31); CHLORIDE LEVEL 103.0 MMOL/L (98-107); CHOLESTEROL LEVEL 184.0 MG/DL (<200); CHOLESTEROL RISK RATIO 2.3 (<5); CREATININE FOR GFR 0.87 MG/DL (0.55-1.30); GLOMERULAR FILTRATION RATE 64.4 (>32); LDL CHOLESTEROL 86.4 MG/DL (<100); NON-HDL-C 104.0 MG/DL; POTASSIUM SERUM 4.3 MMOL/L (3.5-5.1); SODIUM LEVEL 144.0 MMOL/L (136-145); TRIGLYCERIDES LEVEL 88.0 MG/DL (<150)
[2025-03-16 13:48] LABS: TOTAL 25(OH) VITAMIN D 59.3 NG/ML (20.0-100.0)
== END ==
LOC: M PLALAB 09:49
PROVIDERS: ATTEND Family Medicine
DX: M81.0 Age-related osteoporosis without current pathological fracture (principal); I10 Essential (primary) hypertension

== ENCOUNTER 2025-03-17 13:21 | Emergency (ER) | payer MEDICARE, OTHER ==
[~2025-03-17] VITALS: Ht 160 cm; Wt 51.1 kg
[~2025-03-17 13:21] MED LIST changes: -ASPI81TA26 PO; -CHLO125TA; -CLOP75TA2; -SPIR-10
[2025-03-17] MEDS ORDERED: ASPI81TA26 PO (13:34)
[2025-03-17] MEDS ORDERED: CLOP75TA2 (13:34)
[2025-03-17] MEDS ORDERED: CHLO125TA (13:34)
[2025-03-17] MEDS ORDERED: SPIR-10 (13:34)
[2025-03-17 15:08] LABS: BASO # 0.0 10^3/uL (0.0-0.2); BASO % 0.2 % (0.0-1.0); EOS # 0.1 10^3/uL (0.0-0.5); EOS % 0.4 % (0.0-3.0); LYMPH # 1.6 10^3/uL (1.5-5.0); LYMPH % 12.3 % (24.0-44.0); MONO # 1.0 10^3/uL (0.0-0.8); MONO % 7.6 % (2.0-8.0); NEUTROPHILS # 10.2 10^3/uL (1.5-8.5); NEUTROPHILS % 79.1 % (36.0-66.0); PLATELET COUNT, AUTOMATED 279 10^3/uL (150-450)
[2025-03-17 15:27] LABS: CALCIUM LEVEL 10.4 MG/DL (8.3-10.6); CARBON DIOXIDE LEVEL 30.0 MMOL/L (20-31); CHLORIDE LEVEL 100.0 MMOL/L (98-107); CREATININE FOR GFR 0.86 MG/DL (0.55-1.30); GLOMERULAR FILTRATION RATE 65.3 (>32); POTASSIUM SERUM 3.6 MMOL/L (3.5-5.1); SODIUM LEVEL 143.0 MMOL/L (136-145)
[2025-03-17 20:09] VITALS: BP 187/84; TEMP 97.9; O2SAT 100
== END 2025-03-17 20:19 | disposition home or self-care (01) ==
LOC: M ED 13:21
DX: K59.00 Constipation, unspecified (principal); K62.5 Hemorrhage of anus and rectum; I48.91 Unspecified atrial fibrillation; I10 Essential (primary) hypertension; E78.5 Hyperlipidemia, unspecified; Z88.8 Allergy status to other drugs, medicaments and biological substances; Z79.1 Long term (current) use of non-steroidal anti-inflammatories (NSAID); Z79.899 Other long term (current) drug therapy